=== PATIENT | male | born 1935 | race Caucasian/White ===

== ENCOUNTER 2017-02-01 19:20 | Emergency (ER) | payer OTHER ==
[~2017-02-01] VITALS: Ht 177.8 cm; Wt 110.1 kg
[~2017-02-01 19:20] MED LIST: ADVIN25/60 INH; ASPCH81X PO; ATOR-22 PO; BROM0.07 OPL; CALC500C3 PO; CLOB-65 TOP; GLIP10TA9 PO; OXGN; PRED1SUS OPL; SITA100T3 PO; TIOTCAP INH
[2017-02-01 19:21] VITALS: Ht 177.8 cm; Wt 110.1 kg
[2017-02-01] MEDS ORDERED: HYDR25TA4 PO (19:26)
[2017-02-01] MEDS ORDERED: DiphenhydrAMINE HCL 50 MG/ML VIAL IV STA (19:51)
[2017-02-01] MEDS ORDERED: FAMOTIDINE IV INJ 20 MG in DEXTROSE 5% 100ML 100 ML IV STA (19:51)
[2017-02-01] MEDS ORDERED: TIOT1SPR INH (19:52)
[2017-02-01] MEDS ORDERED: LPT40 PO (20:07)
[2017-02-01] MEDS ORDERED: FAMOTIDINE IV INJ 20 MG in SYRINGE 3 ML IV ONE (20:15)
[2017-02-01] MEDS ORDERED: INSULIN ASPART 100 UNITS/ML 3 ML PEN SC ONE (20:30)
[2017-02-01] MEDS ORDERED: NovoLOG PER UNIT CHARGE SC ONE (20:45)
[2017-02-01 21:40] VITALS: BP 141/73; PULSE 89; O2SAT 94
--- NOTE | 2017-02-01 21:50 | EMERGENCY ROOM VISIT NOTE ---
History First contact with patient: 19:28 Chief Complaint: ALLERGIC REACTION Stated Complaint: HIVES History of Present Illness The patient is a 81 year old male who presents to the Emergency Room with complaints of new onset of itchy rash on his arms, abdomen, and legs this afternoon, within an hour of leaving [facility] s/p naso-pharyngeal laryngoscopy. PMH significant for esophageal cancer and diabetes mellitus. Patient has had these scopes at least 4 times and has never had any reaction to the medications in the past. He reports that while driving home, he had to stop at a truck stop to buy some benadryl. He took 2 25 mg benadryl at approximately 1630 today. He had reported some difficulty breathing at that time which subsided after the benadryl. He currently denies and shortness of breath, tongue or lip swelling, dizziness. His sole complaint is itchy hives on arms, legs, and abdomen. He denies any food intake post-procedure. Review of Systems Constitutional: No fever, No chills, No sweats, No weight loss, No weakness , No fatigue, No problem reported Eyes: No worsening of vision, No eye pain, No redness, No discharge, No diplopia, No problem reported ENT: No hearing loss, No unusual epistaxis, No nasal symptoms, No sore throat, No tinnitus, No dental problems, No trouble swallowing, No problem reported Respiratory: No cough, No sputum, No wheezing, No shortness of breath, No dyspnea on exertion, No dyspnea at rest, No hemoptysis, No problem reported Cardiovascular: No chest pain, No orthopnea, No PND, No edema, No claudication, No palpitations, No problem reported Abdomen: No pain, No nausea, No vomiting, No diarrhea, No constipation, No GI bleeding, No problem reported Neurologic: No memory loss, No paralysis, No weakness, No numbness/tingling , No vertigo, No balance problems, No problem reported Hematologic / Lymphatic: No swollen lymph nodes Integumentary: + rash, + itch, + new/changing skin lesions Past Medical/Surgical History Medical Problems: (1) CKD (chronic kidney disease) stage 3, GFR 30-59 ml/min (2) COPD (chronic obstructive pulmonary disease) (3) DM type 2 (diabetes mellitus, type 2) (4) Dyslipidemia (5) H/O laryngeal cancer (6) H/O prostate cancer (7) HTN (hypertension) (8) Pleural effusion Social History Smoking Status: Never Smoker Drug Use: none Marital Status: Occupation Status: retired Current/Historical Medications Scheduled Atorvastatin (Atorvastatin Calcium), 40 MG PO DAILY Fluticasone Prop/Salmeterol (Advair Diskus 250/50 60 Dose), 1 PUFF INH BID Glipizide (Glucotrol), 10 MG PO BID Hydrochlorothiazide (Hctz), 1 TAB PO QAM Sitagliptin Phosphate (Januvia), 100 MG PO QAM Tiotropium [place] (Spiriva Respimat), 1 PUFF INH DAILY Physical Exam Vital Signs Date Time Temp Pulse Resp B/P (MAP) Pulse Ox O2 Delivery O2 Flow Rate FiO2 02/01/17 21:40 89 18 141/73 94 Room Air 02/01/17 19:48 Room Air 93 02/01/17 19:21 86 18 152/65 91 Room Air Physical Exam General Appearance: WD/WN, no apparent distress Head: normocephalic, atraumatic Eyes: normal inspection, PERRL, EOMI, sclerae normal ENT: normal ENT inspection, hearing grossly normal, TMs normal, pharynx normal Neck: supple, no adenopathy, trachea midline Respiratory/Chest: chest non-tender, lungs clear, normal breath sounds, no respiratory distress, no accessory muscle use Cardiovascular: regular rate, rhythm, no edema, no gallop, no JVD, no murmur , normal peripheral pulses Abdomen / GI: normal bowel sounds, non tender, soft Back: normal inspection Extremities: + pertinent finding (diffuse confluent hives on anterior aspects of arms and abdomen) Neurologic/Psych: overlay plastician II-XII nml as tested, no motor/sensory deficits, alert , normal mood/affect, oriented x 3 Medical Decision & Procedures Laboratory Results Test 02/01/17 21:37 Bedside Glucose 229 mg/dl (70-99) Medications Administered Medications (Trade) Dose Ordered Sig/Lita Route Start Time Stop Time Status Last Admin Dose Admin Diphenhydramine HCl (Benadryl Inj) 25 mg NOW STAT IV 02/01/17 19:51 02/01/17 19:58 DC 02/01/17 20:30 25 MG Famotidine 20 mg/ Syringe 5 ml @ 2.5 mls/min NOW ONCE IV 02/01/17 20:15 02/01/17 20:16 DC 02/01/17 20:30 2.5 MLS/MIN Insulin Aspart (novoLOG PER UNIT) 6 units NOW ONCE SC 02/01/17 20:45 02/01/17 20:46 DC 02/01/17 20:44 6 UNITS ED Course 1929: full h&p obtained 1944: Discussed case with Dr. Kulkarni 1999: Ordered POC glucose, 25 mg benadryl, 20 mg famotidine 2029: Glucose found to be 287; ordered 6 units novolog insulin; decision made to not give solumedrol. 2144: Reassessed patient; Rash is completely resolved; patient feels well, understands return instructions and is eager to depart. Glucose repeat of 220. Patient to return home and take diabetes medications. Medical Decision Prior records/ancillary studies reviewed. Triage Nursing notes reviewed. Additional history obtained from patient and family. The patient's history was concerning for possible allergic reaction. Differential diagnosis: Etiologies such as allergic reaction, anaphylaxis, urticaria, Navarro-Miguel syndrome, toxic epidermal necrolysis, erythema multiforme, cellulitis, as well as others were entertained. Physical examination: As above. ER treatment provided: Continuous cardiac monitoring Benadryl 25 mg IV Famotidine 20 mg IV 6 U novolog insulin On reassessment the patient felt better. It appears the patient had an allergic reaction. The above treatment did well to reverse the symptoms. After prolonged monitoring and frequent reassessments the patient did very well and symptoms resolved. The patient was counseled on the spectrum of this disease process and told to avoid potential triggers. I gave my usual and customary discussion regarding this issue. By the evaluation outlined above emergent etiologies such as recurring anaphylaxis, anaphylatic shock, airway compromise, Navarro-Miguel syndrome, toxic epidermal necrolysis, erythema multiforme, infectious etiologies, as well as others were deemed relatively unlikely. The patient and family were informed about the findings as listed above. All questions were answered and they were pleased with the treatment. Return instructions were outlined and the patient was discharged in stable condition. Referral: The patient was referred back to his primary care physician for follow-up in 2- 3 days for a recheck of the current condition. Impression Primary Impression: Allergic reaction Departure Information Dispostion Home / Self-Care Condition GOOD Referrals Dario Etienne D.O. (PCP) Patient Instructions Allergy Meds, [facility] Additional Instructions ALLERGIC REACTION INSTRUCTIONS: DO NOT drive, drink alcohol, operate machinery, or perform dangerous activities today. You were given medications in the ER that can affect your ability to safely function or operate a vehicle. Diphenhydramine(Benadryl) 25mg: use 25 to 50 mg as needed every six hours for swelling, itching, or hives. This medication is sedating and will cause drowsiness. Avoid alcohol, operating machinery or dangerous equipment, working on ladders or roofs, DRIVING , or situations where being under the influence may be dangerous. Zantac 75: Take two pills twice a day along with Benadryl as needed for swelling , itching, or hives. Most people know this for its affect on the stomach, but it also acts similar to, but less potent than Benadryl for allergic reactions. Both the Benadryl and the Zantac are available [id number]. Read all the package inserts or medication information paperwork provided. If you have any questions or concerns call your primary provider, pharmacist or the ER for assistance. Continue current medications. Return to the emergency department for worsening of your rash, swelling of your face, lips, tongue, or throat, difficulty breathing, vomiting, or as needed. Follow-up with your primary care physician in 2-3 days for a recheck of your current condition. Resident Tracking Resident Involvement: Resident Care Provided Care Provided: Adult ED Problem Qualifiers Primary Impression: Allergic reaction Encounter type: initial encounter Qualified Codes: T78.40XA - Allergy, unspecified, initial encounter
--- NOTE | 2017-02-03 01:14 | EMERGENCY ROOM VISIT NOTE ---
ED Visit Note First contact with patient: 19:26 Resident Physician Supervision Note: I interviewed and examined the patient. Discussed with Dr. Mcwilliams and agree with findings and plan as documented in the note. Any exceptions or clarifications are listed here: The patient was evaluated and was having a mild allergic reaction. He had taken 50 mg of Benadryl prior to arrival. He is found to be hyperglycemic, admitting he had mashed potatoes and bread prior to arrival. He was given 6 units of regular insulin subcutaneously. IV access was obtained and the patient was given IV Benadryl 25 mg, IV Pepcid 20 mg. Steroids were avoided due to the patient's hyperglycemia. The patient was observed in the emergency department and was feeling much improved. He will continue Benadryl as needed for allergic symptoms. Patient will monitor his glucose carefully. He'll follow-up with his PCP this week and notify ENT doctor of the reaction. Patient will return to the ER for worsening of symptoms or any medical concerns. Diagnosis: Allergic reaction Documented By: Wendy Kulkarni
== END 2017-02-01 21:57 | disposition home or self-care (01) ==
LOC: C.EDB 19:21
DX: T78.40XA Allergy, unspecified, initial encounter (principal); X58.XXXA Exposure to other specified factors, initial encounter; E11.22 Type 2 diabetes mellitus with diabetic chronic kidney disease; N18.3 Chronic kidney disease, stage 3 (moderate); J44.9 Chronic obstructive pulmonary disease, unspecified; E78.5 Hyperlipidemia, unspecified; I12.9 Hypertensive chronic kidney disease with stage 1 through stage 4 chronic kidney disease, or unspecified chronic kidney disease

== ENCOUNTER 2018-05-01 05:49 | Inpatient (IN) ==
[2018-05-01 06:21] LABS: Basophils # (auto) 0.01 K/uL (0-0.2); Basophils % (auto) 0.2 %; Eosinophils # (auto) 0.11 K/uL (0-0.5); Eosinophils % (auto) 1.7 %; Hematocrit (blood only) 46.5 % (42-52); Hemoglobin 15.1 g/dL (14.0-18.0); Immature Granulocytes # (auto) 0.01 K/uL (0.00-0.02); Immature Granulocytes % (auto) 0.2 %; Lymphocytes # (auto) 0.89 K/uL (1.2-3.4); Lymphocytes % (auto) 13.4 %; Mean Corpuscular Hgb Conc 32.5 g/dL (32-36); Mean Corpuscular Volume 94.3 fL (80-100); Mean Platelet Volume 10.1 fL (7.4-10.4); Monocytes # (auto) 0.61 K/uL (0.11-0.59); Monocytes % (auto) 9.2 %; Neutrophils # (auto) 4.99 K/uL (1.4-6.5); Neutrophils % (auto) 75.3 %; Platelet Count 147 K/uL (130-400); RDW Coefficient of Variation 14.7 % (11.5-14.5); Red Blood Count 4.93 M/uL (4.7-6.1); White Blood Count 6.62 K/uL (4.8-10.8)
--- NOTE | 2018-05-01 06:26 | XRay Report ---
XR chest 1V portable HISTORY: 82 years-old Male SOB acute shortness of breath COMPARISON: Chest radiograph 08/07/2015 TECHNIQUE: Portable AP view of the chest FINDINGS: Cardiac silhouette is enlarged, unchanged. Mild pulmonary vascular congestion. Moderate left pleural effusion with bibasilar opacities. No pneumothorax. Trace right pleural effusion. Degenerative change s of the shoulders and spine. IMPRESSION: 1. Cardiomegaly with pulmonary vascular congestion. 2. Moderate left pleural effusion with bibasilar opacities suggesting atelectasis. Pneumonitis not ex cluded. 3. Trace right pleural effusion. The above report was generated using voice recognition software. It may contain grammatical, syntax o r spelling errors. Electronically signed by: Edwin Vizcarra M.D. 05/01/2018 6:25 AM
[2018-05-01] MEDS ORDERED: ALBUT/IPRATROP 3MG/0.5MG NEB 3 ML VIAL NEB STA ×2 (06:30→07:20)
[2018-05-01] MEDS ORDERED: FUROSEMIDE 40 MG/4 ML VIAL IV STA ×2 (06:35→08:39)
[2018-05-01 06:36] LABS: BUN Creatinine Ratio 21.9 (10-20); Calcium 8.9 mg/dl (8.5-10.1); Creatinine Clr Calc Pharmacy 56.8 ml/min; Est GFR (African American) 60.7; Est GFR (Non-African American) 52.4; Potassium 3.8 mmol/L (3.5-5.1)
[2018-05-01 06:40] LABS: Troponin I 0.018 ng/ml (0-0.045)
[2018-05-01] MEDS ORDERED: methylPREDNISolone 125 MG/2 ML VIAL IV STA (06:47)
[2018-05-01 06:55] LABS: Albumin Level 3.4 gm/dl (3.4-5.0); Bilirubin Direct 0.3 mg/dl (0-0.2); Bilirubin,Total 1.3 mg/dl (0.2-1); Total Protein 6.9 gm/dl (6.4-8.2)
--- NOTE | 2018-05-01 07:46 | Emergency Department Note ---
Entered by Davis Rivera acting as a scribe for Mehnaz Valentino DO History of Present Illness General Chief complaint: Respiratory Problems Stated complaint: HAVING TROUBLE BREATHING Time Seen by Provider: 05/01/18 06:03 Source: patient Mode of arrival: ambulatory Limitations: no limitations History of Present Illness Onset (ago): unknown (Recent) Location: chest Pain Consistency: + other (Worsening) Relieved By: + none Associated symptoms: + denies other symptoms (Calf cramping) and + cough; no chest pain and no fever/chills The patient is an 82 year old male who presents to the ED due to complaints of worsening SOB that began recently. Patient has a history of COPD and uses 2L oxygen chronically at home. He states he is unable to take the oxygen tank with him though when he leaves his house. Patient states every year he goes to [place] with his for the winter. He states this year he went to [place] in January but him and his had to return earlier than usual in March because of the patients worsening SOB. He states he did not bring his inhalers with him to [place]. Patient states when he returned from [place] he saw Dr. Fulton in March who told him to start using his inhalers and 2L oxygen again until he got back to his baseline. Patient states he has not returned to his baseline making him concerned so he came into the ER. Patient adds that he has also had a productive cough but states this is not abnormal for him. He adds that his neighbor is a nurse and told him that he has lower extremity edema and diminished breath soun ds. Patient states he also has a history of diabetes. Patient denies any preceding URI symptoms, fevers, chest pain, sick contacts, recent immobilization, and calf cramping. Patient also denies using a nebulizer for his symptoms. Home Medications Home Medications Medication Instructions Recorded Confirmed Type atorvastatin 40 mg PO QAM 05/01/18 05/01/18 History fluticasone-salmeterol [Advair 1 inh INHALATION BID 05/01/18 05/01/18 History Diskus] glipizide 10 mg PO BID 05/01/18 05/01/18 History hydrochlorothiazide 25 mg PO QAM 05/01/18 05/01/18 History multivitamin 1 tab PO QAM 05/01/18 05/01/18 History sitagliptin [Januvia] 100 mg PO QAM 05/01/18 05/01/18 History tiotropium bromide [Spiriva with 1 cap INHALATION QAM 05/01/18 05/01/18 History HandiHaler] Allergies Allergy/AdvReac Type Severity Reaction Status Date / Time No Known Allergies Allergy . Verified 05/01/18 06:27 Past Med/Surg History Medical History COPD (chronic obstructive pulmonary disease) Diabetes Surgical History History of thoracentesis Social History Communication Ability: Effective Beliefs That Will Affect Care: None marital status: Current Living Situation: Spouse Other Information That Helps Us Care for You: No Feels Safe at Home: Yes Safety Concerns: Feels Safe At This Time Smoking Status: Former smoker Hx Alcohol Use: No Hx Substance Use: No Review of Systems See HPI for pertinent positives & negatives. and A total of 10 systems reviewed and were otherwise negative Physical Exam Vital Signs Vital Signs - 24 hr 05/02/18 20:11 05/02/18 23:00 05/02/18 23:36 Temperature 36.9 C 36.6 C Temperature Source Oral Oral Pulse Rate 65 Pulse Rate [Finger] Pulse Rate [Right] 78 61 Pulse Rhythm [Finger] Pulse Rhythm [Right] Regular Pulse Strength [Finger] Pulse Strength [Right] Normal Respiratory Rate 19 17 Respiratory Effort / Characteristics Non-Labored Respiratory Depth Normal Normal Respiratory Pattern Blood Pressure [Left Arm] Blood Pressure [Right Arm] 122/65 120/53 L Blood Pressure Mean [Left Arm] Blood Pressure Mean [Right Arm] 84 75 Blood Pressure Position [Left Arm] Blood Pressure Position [Right Arm] Lying Lying Pulse Oximetry 92 95 Pulse Oximetry [Start of Treatment] Oxygen Delivery Method Nasal Cannula Nasal Cannula Oxygen Flow Rate 2 3 Oxygen Flow Rate [Start of Treatment] 05/03/18 04:12 05/03/18 07:12 05/03/18 08:00 Temperature 36.6 C 37.1 C Temperature Source Oral Oral Pulse Rate Pulse Rate [Finger] 66 84 Pulse Rate [Right] Pulse Rhythm [Finger] Pulse Rhythm [Right] Pulse Strength [Finger] Pulse Strength [Right] Respiratory Rate 22 21 Respiratory Effort / Characteristics Non-Labored Spontaneous Respiratory Depth Normal Respiratory Pattern Regular Blood Pressure [Left Arm] 125/62 100/57 L Blood Pressure [Right Arm] Blood Pressure Mean [Left Arm] 83 71 Blood Pressure Mean [Right Arm] Blood Pressure Position [Left Arm] Sitting Sitting Blood Pressure Position [Right Arm] Pulse Oximetry 91 91 Pulse Oximetry [Start of Treatment] Oxygen Delivery Method Nasal Cannula Nasal Cannula Nasal Cannula Oxygen Flow Rate 3 3 3 Oxygen Flow Rate [Start of Treatment] 05/03/18 09:34 05/03/18 10:55 05/03/18 15:02 Temperature 36.6 C Temperature Source Oral Pulse Rate 87 Pulse Rate [Finger] 62 Pulse Rate [Right] Pulse Rhythm [Finger] Pulse Rhythm [Right] Pulse Strength [Finger] Pulse Strength [Right] Respiratory Rate 19 Respiratory Effort / Characteristics Respiratory Depth Respiratory Pattern Blood Pressure [Left Arm] 111/67 Blood Pressure [Right Arm] Blood Pressure Mean [Left Arm] 81 Blood Pressure Mean [Right Arm] Blood Pressure Position [Left Arm] Sitting Blood Pressure Position [Right Arm] Pulse Oximetry 95 Pulse Oximetry [Start of Treatment] 90 Oxygen Delivery Method Nasal Cannula Oxygen Flow Rate 3 Oxygen Flow Rate [Start of Treatment] 3 05/03/18 15:22 Temperature 36.7 C Temperature Source Oral Pulse Rate Pulse Rate [Finger] 72 Pulse Rate [Right] Pulse Rhythm [Finger] Regular Pulse Rhythm [Right] Pulse Strength [Finger] Normal Pulse Strength [Right] Respiratory Rate 18 Respiratory Effort / Characteristics Non-Labored Respiratory Depth Normal Respiratory Pattern Blood Pressure [Left Arm] Blood Pressure [Right Arm] 116/66 Blood Pressure Mean [Left Arm] Blood Pressure Mean [Right Arm] 82 Blood Pressure Position [Left Arm] Blood Pressure Position [Right Arm] Sitting Pulse Oximetry 94 Pulse Oximetry [Start of Treatment] Oxygen Delivery Method Nasal Cannula Oxygen Flow Rate 3 Oxygen Flow Rate [Start of Treatment] GENERAL: alert, well appearing, well nourished, no distress, non-toxic EYE EXAM: normal conjunctiva, PERRL and EOM's grossly intact OROPHARYNX: no exudate, no erythema, lips, buccal mucosa, and tongue normal and mucous membranes are moist NECK: supple, no nuchal rigidity, no adenopathy, non-tender LUNGS: Diminished breath sounds worse on left, scattered expiratory wheezes otherwise clear to auscultation. Normal chest wall mechanics HEART: no murmurs, S1 normal and S2 normal ABDOMEN: abdomen soft, non-tender, normo-active bowel sounds, no masses, no rebound or guarding. BACK: Back is symmetrical on inspection and there is no deformity, no midline tenderness, no CVA tenderness. SKIN: no rashes and no bruising UPPER EXTREMITIES: upper extremities are grossly normal. FROM, nml pulses b/l. LOWER EXTREMITIES: 2-3+ bilateral pitting edema. FROM, nml pulses b/l. NEURO EXAM: Normal sensorium, cranial nerves II-XII grossly intact, normal speech, no gross weakness of arms, no gross weakness of legs. Course 0600: Past medical records reviewed. The patient was evaluated in room B9, and a complete history and physical examination were performed. 0738: Upon reevaluation, the patient will be further evaluated. I updated the patient on their findings and treatment plan. Patient is agreeable to the treatment plan. Patient will be assessed for further evaluation. Consultations Consultation #1: I reviewed the patient's case with Dr. Menezes. He will evaluate the patient for further management. Administered Medications Atorvastatin Calcium (Lipitor) 40 mg PO HS MAYCOL Stop: 05/31/18 20:59 Last Admin: 05/02/18 21:43 Dose: 40 mg Documented by: [id number] Admin: 05/01/18 19:54 Dose: 40 mg Documented by: [id number] Glipizide (Glucotrol) 10 mg PO BIDM MAYCOL Stop: 05/31/18 11:29 Last Admin: 05/03/18 17:05 Dose: 10 mg Documented by: [id number] Admin: 05/03/18 09:10 Dose: 10 mg Documented by: [id number] Admin: 05/02/18 17:16 Dose: 10 mg Documented by: [id number] Admin: 05/02/18 08:11 Dose: 10 mg Documented by: [id number] Admin: 05/01/18 17:19 Dose: 10 mg Documented by: [id number] Admin: 05/01/18 11:53 Dose: 10 mg Documented by: [id number] Heparin Sodium (Porcine) (Heparin Sodium (Porcine)) 5,000 units SQ Q12 MAYCOL Stop: 05/31/18 08:59 Last Admin: 05/03/18 09:07 Dose: 5,000 units Documented by: [id number] Cosigned by: [id number] Admin: 05/02/18 21:39 Dose: 5,000 units Documented by: [id number] Cosigned by: [id number] Admin: 05/02/18 08:13 Dose: 5,000 units Documented by: [id number] Cosigned by: [id number] Admin: 05/01/18 20:46 Dose: 5,000 units Documented by: [id number] Cosigned by: [id number] Admin: 05/01/18 11:51 Dose: 5,000 units Documented by: [id number] Cosigned by: [id number] Insulin Aspart (Novolog Flexpen) 0 units SC ACHS MAYCOL Stop: 05/31/18 11:29 Last Admin: 05/03/18 17:04 Dose: 3 units Documented by: [id number] Cosigned by: [id number] Admin: 05/03/18 12:58 Dose: 4 units Documented by: [id number] Cosigned by: [id number] Admin: 05/03/18 09:04 Dose: 3 units Documented by: [id number] Cosigned by: [id number] Admin: 05/02/18 21:38 Dose: 3 units Documented by: [id number] Cosigned by: [id number] Admin: 05/02/18 17:17 Dose: 4 units Documented by: [id number] Cosigned by: [id number] Admin: 05/02/18 12:13 Dose: 8 units Documented by: [id number] Cosigned by: [id number] Admin: 05/02/18 08:14 Dose: 6 units Documented by: [id number] Cosigned by: [id number] Admin: 05/01/18 20:46 Dose: 3 units Documented by: [id number] Cosigned by: [id number] Admin: 05/01/18 17:18 Dose: 11 units Documented by: [id number] Cosigned by: [id number] Admin: 05/01/18 11:57 Dose: 238 units Documented by: [id number] Cosigned by: [id number] Metoprolol Tartrate (Lopressor) 12.5 mg PO BID MAYCOL Stop: 05/31/18 10:59 Last Admin: 05/03/18 09:08 Dose: 12.5 mg Documented by: [id number] Admin: 05/02/18 21:41 Dose: 12.5 mg Documented by: [id number] Admin: 05/02/18 08:10 Dose: 12.5 mg Documented by: [id number] Admin: 05/01/18 19:54 Dose: 12.5 mg Documented by: [id number] Admin: 05/01/18 11:50 Dose: 12.5 mg Documented by: [id number] Multivitamins (Multivitamin Tab) 1 tab PO QAM MAYCOL Stop: 05/31/18 10:01 Last Admin: 05/03/18 09:09 Dose: 1 tab Documented by: [id number] Admin: 05/02/18 08:09 Dose: 1 tab Documented by: [id number] Admin: 05/01/18 11:55 Dose: 1 tab Documented by: [id number] Fluticasone/Salmeterol (Advair Diskus 250/50) 1 puffs INH BID MAYCOL Stop: 05/31/18 10:01 Last Admin: 05/03/18 09:05 Dose: 1 puffs Documented by: [id number] Admin: 05/02/18 21:42 Dose: 1 puffs Documented by: [id number] Admin: 05/02/18 08:11 Dose: 1 puffs Documented by: [id number] Admin: 05/01/18 19:53 Dose: 1 puffs Documented by: [id number] Admin: 05/01/18 11:54 Dose: 1 puffs Documented by: [id number] Tiotropium [place] (Spiriva) 1 puffs INH QAM MAYCOL Stop: 05/31/18 10:01 Last Admin: 05/03/18 09:09 Dose: 1 puffs Documented by: [id number] Admin: 05/02/18 08:13 Dose: 1 puffs Documented by: [id number] Admin: 05/01/18 11:55 Dose: 1 puffs Documented by: [id number] Discontinued Medications Albuterol (Duoneb) 3 ml NEB NOW STA Stop: 05/01/18 06:31 Last Admin: 05/01/18 06:33 Dose: 3 ml Documented by: [id number] Albuterol (Duoneb) 3 ml NEB NOW STA Stop: 05/01/18 07:21 Last Admin: 05/01/18 07:35 Dose: 3 ml Documented by: [id number] Furosemide (Lasix) 40 mg IV NOW STA Stop: 05/01/18 06:36 Last Admin: 05/01/18 06:38 Dose: 40 mg Documented by: [id number] Furosemide (Lasix) 40 mg IV BID STA Stop: 05/01/18 08:40 Last Admin: 05/01/18 10:15 Dose: Not Given Documented by: [id number] Methylprednisolone 20 mg/ (Syringe) 0.32 mls @ 1.5 mls/min IV Q12H MAYCOL Stop: 05/31/18 18:59 Last Admin: 05/02/18 08:10 Dose: 1.5 mls/min Documented by: [id number] Admin: 05/01/18 19:52 Dose: 1.5 mls/min Documented by: [id number] Furosemide 40 mg/ Syringe 4 mls @ 4 mls/min IV [id number] MAYCOL Stop: 05/31/18 16:59 Last Admin: 05/03/18 09:06 Dose: 4 mls/min Documented by: [id number] Admin: 05/02/18 17:15 Dose: 4 mls/min Documented by: [id number] Admin: 05/02/18 08:10 Dose: 4 mls/min Documented by: [id number] Admin: 05/01/18 17:19 Dose: 4 mls/min Documented by: [id number] Magnesium Sulfate/Dextrose (Magnesium Sulfate / D5w) 1 gm in 100 mls @ 100 mls/hr IV ONE ONE Stop: 05/01/18 15:39 Last Infusion: 05/01/18 16:38 Dose: 0 mls/hr Documented by: [id number] Admin: 05/01/18 15:27 Dose: 100 mls/hr Documented by: [id number] Methylprednisolone (Solumedrol) 60 mg IV NOW STA Stop: 05/01/18 06:48 Last Admin: 05/01/18 07:08 Dose: 60 mg Documented by: [id number] Perflutren Lipid Microsphere (Definity) 2 ml IV ONCE ONE Stop: 05/01/18 10:03 Last Admin: 05/01/18 09:50 Dose: 2 ml Documented by: [id number] Potassium Chloride (Klor-Con M20) 20 meq PO NOW STA Stop: 05/01/18 10:52 Last Admin: 05/01/18 11:53 Dose: 20 meq Documented by: [id number] Medical Decision Making Differential Diagnosis Differential diagnosis: Etiologies such as infections, reactive airway disease, COPD, pneumonia, pleural effusion, pulmonary edema, ARDS, pneumothorax, CHF, cardiac ischemia, cardiac tamponade, dysrhythmia, anemia, pulmonary embolism, musculoskeletal, gastrointestinal process, as well as others were entertained. Medical Records Attestation: I reviewed the patient's medical records. Home Medications Current Medication List: was personally reviewed by me Laboratory Data Attestation: I reviewed the patient's lab results. Result diagrams: 05/02/18 07:26 05/03/18 07:02 Lab Results 05/01/18 05/01/18 05/01/18 Range/Units 06:05 06:05 06:05 WBC 6.62 (4.8-10.8) K/uL RBC 4.93 (4.7-6.1) M/uL Hgb 15.1 (14.0-18.0) g/dL Hct 46.5 (42-52) % MCV 94.3 (80-100) fL MCH 30.6 (25-34) pg MCHC 32.5 (32-36) g/dL RDW Std Deviation 51.0 H (36.4-46.3) fL RDW Coeff of Raisa 14.7 H (11.5-14.5) % Plt Count 147 (130-400) K/uL MPV 10.1 (7.4-10.4) fL Immature Gran % (Auto) 0.2 % Neut % (Auto) 75.3 % Lymph % (Auto) 13.4 % [place] % (Auto) 9.2 % Eos % (Auto) 1.7 % Baso % (Auto) 0.2 % Immature Gran # (Auto) 0.01 (0.00-0.02) K/uL Neut # (Auto) 4.99 (1.4-6.5) K/uL Lymph # (Auto) 0.89 L (1.2-3.4) K/uL [place] # (Auto) 0.61 H (0.11-0.59) K/uL Eos # (Auto) 0.11 (0-0.5) K/uL Baso # (Auto) 0.01 (0-0.2) K/uL PT (9.0-12.0) Seconds INR (0.9-1.1) Sample Site POC pH (7.35-7.45) POC pCO2 (35-46) mmHg POC pO2 (80-95) mmHg POC HCO3 (19-24) lilia/L POC Total CO2 (24-31) mEq/l POC Base Excess (-9-1.8) lilia/L POC ABG O2 Sat (90-95) % Catalino Test Sodium 141 (136-145) mmol/L Potassium 3.8 (3.5-5.1) mmol/L Chloride 103 (98-107) mmol/L Carbon Dioxide 33 H (21-32) mmol/L Anion Gap 5.0 (3-11) BUN 28 H (7-18) mg/dl Creatinine 1.26 (0.6-1.4) mg/dl Est Cr Clr Drug Dosing 56.8 ml/min Est GFR ( Amer) 60.7 Est GFR (Non-Af Amer) 52.4 BUN/Creatinine Ratio 21.9 H (10-20) Glucose 109 H (70-99) mg/dl POC Glucose (70-99) Estimat Average Glucose mg/dl Hemoglobin A1c (4.5-5.6) % Calcium 8.9 (8.5-10.1) mg/dl Magnesium (1.8-2.4) mg/dl Total Bilirubin 1.3 H (0.2-1) mg/dl Direct Bilirubin 0.3 H (0-0.2) mg/dl AST 19 (15-37) U/L ALT 23 (12-78) U/L Alkaline Phosphatase 96 (45-117) U/L Lactate Dehydrogenase (87-241) U/L Troponin I 0.018 (0-0.045) ng/ml NT-Pro-B Natriuret Pep 679 (0-1800) pg/ml Total Protein 6.9 (6.4-8.2) gm/dl Albumin 3.4 (3.4-5.0) gm/dl Pleural Fluid Source Pleural Color Pleural Appearance Pleural WBC /uL Pleural RBC /uL Pleural Polynuclear % % Pleural Mononuclear % % Pleural Total Protein g/dl Pleural LDH U/L Pleural Glucose mg/dl Pleural Amylase U/L Influenza Type A Ag (Neg) Influenza Type B Ag (Neg) 05/01/18 05/01/18 05/01/18 Range/Units 06:05 06:10 09:42 WBC (4.8-10.8) K/uL RBC (4.7-6.1) M/uL Hgb (14.0-18.0) g/dL Hct (42-52) % MCV (80-100) fL MCH (25-34) pg MCHC (32-36) g/dL RDW Std Deviation (36.4-46.3) fL RDW Coeff of Raisa (11.5-14.5) % Plt Count (130-400) K/uL MPV (7.4-10.4) fL Immature Gran % (Auto) % Neut % (Auto) % Lymph % (Auto) % [place] % (Auto) % Eos % (Auto) % Baso % (Auto) % Immature Gran # (Auto) (0.00-0.02) K/uL Neut # (Auto) (1.4-6.5) K/uL Lymph # (Auto) (1.2-3.4) K/uL [place] # (Auto) (0.11-0.59) K/uL Eos # (Auto) (0-0.5) K/uL Baso # (Auto) (0-0.2) K/uL PT 11.4 (9.0-12.0) Seconds INR 1.1 (0.9-1.1) Sample Site POC pH (7.35-7.45) POC pCO2 (35-46) mmHg POC pO2 (80-95) mmHg POC HCO3 (19-24) lilia/L POC Total CO2 (24-31) mEq/l POC Base Excess (-9-1.8) lilia/L POC ABG O2 Sat (90-95) % Catalino Test Sodium (136-145) mmol/L Potassium (3.5-5.1) mmol/L Chloride (98-107) mmol/L Carbon Dioxide (21-32) mmol/L Anion Gap (3-11) BUN (7-18) mg/dl Creatinine (0.6-1.4) mg/dl Est Cr Clr Drug Dosing ml/min Est GFR ( Amer) Est GFR (Non-Af Amer) BUN/Creatinine Ratio (10-20) Glucose (70-99) mg/dl POC Glucose 149 H (70-99) Estimat Average Glucose mg/dl Hemoglobin A1c (4.5-5.6) % Calcium (8.5-10.1) mg/dl Magnesium (1.8-2.4) mg/dl Total Bilirubin (0.2-1) mg/dl Direct Bilirubin (0-0.2) mg/dl AST (15-37) U/L ALT (12-78) U/L Alkaline Phosphatase (45-117) U/L Lactate Dehydrogenase (87-241) U/L Troponin I (0-0.045) ng/ml NT-Pro-B Natriuret Pep (0-1800) pg/ml Total Protein (6.4-8.2) gm/dl Albumin (3.4-5.0) gm/dl Pleural Fluid Source Pleural Color Pleural Appearance Pleural WBC /uL Pleural RBC /uL Pleural Polynuclear % % Pleural Mononuclear % % Pleural Total Protein g/dl Pleural LDH U/L Pleural Glucose mg/dl Pleural Amylase U/L Influenza Type A Ag Neg for Influ A (Neg) Influenza Type B Ag Neg for Influ B (Neg) 05/01/18 05/01/18 05/01/18 Range/Units 11:11 11:30 17:00 WBC (4.8-10.8) K/uL RBC (4.7-6.1) M/uL Hgb (14.0-18.0) g/dL Hct (42-52) % MCV (80-100) fL MCH (25-34) pg MCHC (32-36) g/dL RDW Std Deviation (36.4-46.3) fL RDW Coeff of Raisa (11.5-14.5) % Plt Count (130-400) K/uL MPV (7.4-10.4) fL Immature Gran % (Auto) % Neut % (Auto) % Lymph % (Auto) % [place] % (Auto) % Eos % (Auto) % Baso % (Auto) % Immature Gran # (Auto) (0.00-0.02) K/uL Neut # (Auto) (1.4-6.5) K/uL Lymph # (Auto) (1.2-3.4) K/uL [place] # (Auto) (0.11-0.59) K/uL Eos # (Auto) (0-0.5) K/uL Baso # (Auto) (0-0.2) K/uL PT (9.0-12.0) Seconds INR (0.9-1.1) Sample Site POC pH (7.35-7.45) POC pCO2 (35-46) mmHg POC pO2 (80-95) mmHg POC HCO3 (19-24) lilia/L POC Total CO2 (24-31) mEq/l POC Base Excess (-9-1.8) lilia/L POC ABG O2 Sat (90-95) % Catalino Test Sodium 139 (136-145) mmol/L Potassium 4.3 (3.5-5.1) mmol/L Chloride 100 (98-107) mmol/L Carbon Dioxide 33 H (21-32) mmol/L Anion Gap 6.0 (3-11) BUN 29 H (7-18) mg/dl Creatinine 1.30 (0.6-1.4) mg/dl Est Cr Clr Drug Dosing 55.0 ml/min Est GFR ( Amer) 58.5 Est GFR (Non-Af Amer) 50.5 BUN/Creatinine Ratio 22.0 H (10-20) Glucose 236 H (70-99) mg/dl POC Glucose 238 H (70-99) Estimat Average Glucose mg/dl Hemoglobin A1c (4.5-5.6) % Calcium 8.9 (8.5-10.1) mg/dl Magnesium 1.8 (1.8-2.4) mg/dl Total Bilirubin (0.2-1) mg/dl Direct Bilirubin (0-0.2) mg/dl AST (15-37) U/L ALT (12-78) U/L Alkaline Phosphatase (45-117) U/L Lactate Dehydrogenase (87-241) U/L Troponin I (0-0.045) ng/ml NT-Pro-B Natriuret Pep (0-1800) pg/ml Total Protein (6.4-8.2) gm/dl Albumin (3.4-5.0) gm/dl Pleural Fluid Source LEFT LUNG Pleural Color YELLOW Pleural Appearance CLEAR Pleural WBC 651 /uL Pleural RBC < 3000 /uL Pleural Polynuclear % 21.7 % Pleural Mononuclear % 78.3 % Pleural Total Protein 4.4 g/dl Pleural LDH 138 U/L Pleural Glucose 261 mg/dl Pleural Amylase 30 U/L Influenza Type A Ag (Neg) Influenza Type B Ag (Neg) 05/01/18 05/01/18 05/01/18 Range/Units 17:01 17:08 20:44 WBC (4.8-10.8) K/uL RBC (4.7-6.1) M/uL Hgb (14.0-18.0) g/dL Hct (42-52) % MCV (80-100) fL MCH (25-34) pg MCHC (32-36) g/dL RDW Std Deviation (36.4-46.3) fL RDW Coeff of Raisa (11.5-14.5) % Plt Count (130-400) K/uL MPV (7.4-10.4) fL Immature Gran % (Auto) % Neut % (Auto) % Lymph % (Auto) % [place] % (Auto) % Eos % (Auto) % Baso % (Auto) % Immature Gran # (Auto) (0.00-0.02) K/uL Neut # (Auto) (1.4-6.5) K/uL Lymph # (Auto) (1.2-3.4) K/uL [place] # (Auto) (0.11-0.59) K/uL Eos # (Auto) (0-0.5) K/uL Baso # (Auto) (0-0.2) K/uL PT (9.0-12.0) Seconds INR (0.9-1.1) Sample Site Heel Stick POC pH 7.41 (7.35-7.45) POC pCO2 47 H (35-46) mmHg POC pO2 77 L (80-95) mmHg POC HCO3 30 H (19-24) lilia/L POC Total CO2 31 (24-31) mEq/l POC Base Excess 5.0 H (-9-1.8) lilia/L POC ABG O2 Sat 95.0 (90-95) % Catalino Test NA Sodium (136-145) mmol/L Potassium (3.5-5.1) mmol/L Chloride (98-107) mmol/L Carbon Dioxide (21-32) mmol/L Anion Gap (3-11) BUN (7-18) mg/dl Creatinine (0.6-1.4) mg/dl Est Cr Clr Drug Dosing ml/min Est GFR ( Amer) Est GFR (Non-Af Amer) BUN/Creatinine Ratio (10-20) Glucose (70-99) mg/dl POC Glucose 253 H 188 H (70-99) Estimat Average Glucose mg/dl Hemoglobin A1c (4.5-5.6) % Calcium (8.5-10.1) mg/dl Magnesium (1.8-2.4) mg/dl Total Bilirubin (0.2-1) mg/dl Direct Bilirubin (0-0.2) mg/dl AST (15-37) U/L ALT (12-78) U/L Alkaline Phosphatase (45-117) U/L Lactate Dehydrogenase (87-241) U/L Troponin I (0-0.045) ng/ml NT-Pro-B Natriuret Pep (0-1800) pg/ml Total Protein (6.4-8.2) gm/dl Albumin (3.4-5.0) gm/dl Pleural Fluid Source Pleural Color Pleural Appearance Pleural WBC /uL Pleural RBC /uL Pleural Polynuclear % % Pleural Mononuclear % % Pleural Total Protein g/dl Pleural LDH U/L Pleural Glucose mg/dl Pleural Amylase U/L Influenza Type A Ag (Neg) Influenza Type B Ag (Neg) 05/02/18 05/02/18 05/02/18 Range/Units 07:21 07:26 07:26 WBC 10.77 (4.8-10.8) K/uL RBC 5.04 (4.7-6.1) M/uL Hgb 15.2 (14.0-18.0) g/dL Hct 47.3 (42-52) % MCV 93.8 (80-100) fL MCH 30.2 (25-34) pg MCHC 32.1 (32-36) g/dL RDW Std Deviation 49.6 H (36.4-46.3) fL RDW Coeff of Raisa 14.5 (11.5-14.5) % Plt Count 169 (130-400) K/uL MPV 10.7 H (7.4-10.4) fL Immature Gran % (Auto) 0.2 % Neut % (Auto) 87.3 % Lymph % (Auto) 6.6 % [place] % (Auto) 5.8 % Eos % (Auto) 0.0 % Baso % (Auto) 0.1 % Immature Gran # (Auto) 0.02 (0.00-0.02) K/uL Neut # (Auto) 9.41 H (1.4-6.5) K/uL Lymph # (Auto) 0.71 L (1.2-3.4) K/uL [place] # (Auto) 0.62 H (0.11-0.59) K/uL Eos # (Auto) 0.00 (0-0.5) K/uL Baso # (Auto) 0.01 (0-0.2) K/uL PT (9.0-12.0) Seconds INR (0.9-1.1) Sample Site POC pH (7.35-7.45) POC pCO2 (35-46) mmHg POC pO2 (80-95) mmHg POC HCO3 (19-24) lilia/L POC Total CO2 (24-31) mEq/l POC Base Excess (-9-1.8) lilia/L POC ABG O2 Sat (90-95) % Catalino Test Sodium 138 (136-145) mmol/L Potassium 4.1 (3.5-5.1) mmol/L Chloride 98 (98-107) mmol/L Carbon Dioxide 34 H (21-32) mmol/L Anion Gap 6.0 (3-11) BUN 37 H (7-18) mg/dl Creatinine 1.37 (0.6-1.4) mg/dl Est Cr Clr Drug Dosing 50.4 ml/min Est GFR ( Amer) 54.9 Est GFR (Non-Af Amer) 47.4 BUN/Creatinine Ratio 27.2 H (10-20) Glucose 146 H (70-99) mg/dl POC Glucose 130 H (70-99) Estimat Average Glucose mg/dl Hemoglobin A1c (4.5-5.6) % Calcium 8.6 (8.5-10.1) mg/dl Magnesium 2.1 (1.8-2.4) mg/dl Total Bilirubin (0.2-1) mg/dl Direct Bilirubin (0-0.2) mg/dl AST (15-37) U/L ALT (12-78) U/L Alkaline Phosphatase (45-117) U/L Lactate Dehydrogenase (87-241) U/L Troponin I (0-0.045) ng/ml NT-Pro-B Natriuret Pep (0-1800) pg/ml Total Protein (6.4-8.2) gm/dl Albumin (3.4-5.0) gm/dl Pleural Fluid Source Pleural Color Pleural Appearance Pleural WBC /uL Pleural RBC /uL Pleural Polynuclear % % Pleural Mononuclear % % Pleural Total Protein g/dl Pleural LDH U/L Pleural Glucose mg/dl Pleural Amylase U/L Influenza Type A Ag (Neg) Influenza Type B Ag (Neg) 05/02/18 05/02/18 05/02/18 Range/Units 11:06 17:08 17:49 WBC (4.8-10.8) K/uL RBC (4.7-6.1) M/uL Hgb (14.0-18.0) g/dL Hct (42-52) % MCV (80-100) fL MCH (25-34) pg MCHC (32-36) g/dL RDW Std Deviation (36.4-46.3) fL RDW Coeff of Raias (11.5-14.5) % Plt Count (130-400) K/uL MPV (7.4-10.4) fL Immature Gran % (Auto) % Neut % (Auto) % Lymph % (Auto) % [place] % (Auto) % Eos % (Auto) % Baso % (Auto) % Immature Gran # (Auto) (0.00-0.02) K/uL Neut # (Auto) (1.4-6.5) K/uL Lymph # (Auto) (1.2-3.4) K/uL [place] # (Auto) (0.11-0.59) K/uL Eos # (Auto) (0-0.5) K/uL Baso # (Auto) (0-0.2) K/uL PT (9.0-12.0) Seconds INR (0.9-1.1) Sample Site POC pH (7.35-7.45) POC pCO2 (35-46) mmHg POC pO2 (80-95) mmHg POC HCO3 (19-24) lilia/L POC Total CO2 (24-31) mEq/l POC Base Excess (-9-1.8) lilia/L POC ABG O2 Sat (90-95) % Catalino Test Sodium (136-145) mmol/L Potassium (3.5-5.1) mmol/L Chloride (98-107) mmol/L Carbon Dioxide (21-32) mmol/L Anion Gap (3-11) BUN (7-18) mg/dl Creatinine (0.6-1.4) mg/dl Est Cr Clr Drug Dosing ml/min Est GFR ( Amer) Est GFR (Non-Af Amer) BUN/Creatinine Ratio (10-20) Glucose (70-99) mg/dl POC Glucose 212 H 115 H (70-99) Estimat Average Glucose mg/dl Hemoglobin A1c (4.5-5.6) % Calcium (8.5-10.1) mg/dl Magnesium (1.8-2.4) mg/dl Total Bilirubin (0.2-1) mg/dl Direct Bilirubin (0-0.2) mg/dl AST (15-37) U/L ALT (12-78) U/L Alkaline Phosphatase (45-117) U/L Lactate Dehydrogenase 198 (87-241) U/L Troponin I (0-0.045) ng/ml NT-Pro-B Natriuret Pep (0-1800) pg/ml Total Protein (6.4-8.2) gm/dl Albumin (3.4-5.0) gm/dl Pleural Fluid Source Pleural Color Pleural Appearance Pleural WBC /uL Pleural RBC /uL Pleural Polynuclear % % Pleural Mononuclear % % Pleural Total Protein g/dl Pleural LDH U/L Pleural Glucose mg/dl Pleural Amylase U/L Influenza Type A Ag (Neg) Influenza Type B Ag (Neg) 05/02/18 05/03/18 05/03/18 Range/Units 20:51 07:02 07:02 WBC (4.8-10.8) K/uL RBC (4.7-6.1) M/uL Hgb (14.0-18.0) g/dL Hct (42-52) % MCV (80-100) fL MCH (25-34) pg MCHC (32-36) g/dL RDW Std Deviation (36.4-46.3) fL RDW Coeff of Raisa (11.5-14.5) % Plt Count (130-400) K/uL MPV (7.4-10.4) fL Immature Gran % (Auto) % Neut % (Auto) % Lymph % (Auto) % Shoshone % (Auto) % Eos % (Auto) % Baso % (Auto) % Immature Gran # (Auto) (0.00-0.02) K/uL Neut # (Auto) (1.4-6.5) K/uL Lymph # (Auto) (1.2-3.4) K/uL Shoshone # (Auto) (0.11-0.59) K/uL Eos # (Auto) (0-0.5) K/uL Baso # (Auto) (0-0.2) K/uL PT (9.0-12.0) Seconds INR (0.9-1.1) Sample Site POC pH (7.35-7.45) POC pCO2 (35-46) mmHg POC pO2 (80-95) mmHg POC HCO3 (19-24) lilia/L POC Total CO2 (24-31) mEq/l POC Base Excess (-9-1.8) lilia/L POC ABG O2 Sat (90-95) % Catalino Test Sodium 137 (136-145) mmol/L Potassium 3.9 (3.5-5.1) mmol/L Chloride 96 L (98-107) mmol/L Carbon Dioxide 37 H (21-32) mmol/L Anion Gap 4.0 (3-11) BUN 47 H (7-18) mg/dl Creatinine 1.67 H D (0.6-1.4) mg/dl Est Cr Clr Drug Dosing 41.3 ml/min Est GFR ( Amer) 43.2 Est GFR (Non-Af Amer) 37.3 BUN/Creatinine Ratio 27.8 H (10-20) Glucose 82 (70-99) mg/dl POC Glucose 196 H (70-99) Estimat Average Glucose 160 mg/dl Hemoglobin A1c 7.2 H (4.5-5.6) % Calcium 8.6 (8.5-10.1) mg/dl Magnesium 2.1 (1.8-2.4) mg/dl Total Bilirubin (0.2-1) mg/dl Direct Bilirubin (0-0.2) mg/dl AST (15-37) U/L ALT (12-78) U/L Alkaline Phosphatase (45-117) U/L Lactate Dehydrogenase (87-241) U/L Troponin I (0-0.045) ng/ml NT-Pro-B Natriuret Pep (0-1800) pg/ml Total Protein (6.4-8.2) gm/dl Albumin (3.4-5.0) gm/dl Pleural Fluid Source Pleural Color Pleural Appearance Pleural WBC /uL Pleural RBC /uL Pleural Polynuclear % % Pleural Mononuclear % % Pleural Total Protein g/dl Pleural LDH U/L Pleural Glucose mg/dl Pleural Amylase U/L Influenza Type A Ag (Neg) Influenza Type B Ag (Neg) 05/03/18 05/03/18 05/03/18 Range/Units 07:36 11:22 16:21 WBC (4.8-10.8) K/uL RBC (4.7-6.1) M/uL Hgb (14.0-18.0) g/dL Hct (42-52) % MCV (80-100) fL MCH (25-34) pg MCHC (32-36) g/dL RDW Std Deviation (36.4-46.3) fL RDW Coeff of Raisa (11.5-14.5) % Plt Count (130-400) K/uL MPV (7.4-10.4) fL Immature Gran % (Auto) % Neut % (Auto) % Lymph % (Auto) % Shoshone % (Auto) % Eos % (Auto) % Baso % (Auto) % Immature Gran # (Auto) (0.00-0.02) K/uL Neut # (Auto) (1.4-6.5) K/uL Lymph # (Auto) (1.2-3.4) K/uL Shoshone # (Auto) (0.11-0.59) K/uL Eos # (Auto) (0-0.5) K/uL Baso # (Auto) (0-0.2) K/uL PT (9.0-12.0) Seconds INR (0.9-1.1) Sample Site POC pH (7.35-7.45) POC pCO2 (35-46) mmHg POC pO2 (80-95) mmHg POC HCO3 (19-24) lilia/L POC Total CO2 (24-31) mEq/l POC Base Excess (-9-1.8) lilia/L POC ABG O2 Sat (90-95) % Catalino Test Sodium (136-145) mmol/L Potassium (3.5-5.1) mmol/L Chloride (98-107) mmol/L Carbon Dioxide (21-32) mmol/L Anion Gap (3-11) BUN (7-18) mg/dl Creatinine (0.6-1.4) mg/dl Est Cr Clr Drug Dosing ml/min Est GFR ( Amer) Est GFR (Non-Af Amer) BUN/Creatinine Ratio (10-20) Glucose (70-99) mg/dl POC Glucose 75 121 H 84 (70-99) Estimat Average Glucose mg/dl Hemoglobin A1c (4.5-5.6) % Calcium (8.5-10.1) mg/dl Magnesium (1.8-2.4) mg/dl Total Bilirubin (0.2-1) mg/dl Direct Bilirubin (0-0.2) mg/dl AST (15-37) U/L ALT (12-78) U/L Alkaline Phosphatase (45-117) U/L Lactate Dehydrogenase (87-241) U/L Troponin I (0-0.045) ng/ml NT-Pro-B Natriuret Pep (0-1800) pg/ml Total Protein (6.4-8.2) gm/dl Albumin (3.4-5.0) gm/dl Pleural Fluid Source Pleural Color Pleural Appearance Pleural WBC /uL Pleural RBC /uL Pleural Polynuclear % % Pleural Mononuclear % % Pleural Total Protein g/dl Pleural LDH U/L Pleural Glucose mg/dl Pleural Amylase U/L Influenza Type A Ag (Neg) Influenza Type B Ag (Neg) Imaging Data My Impression: cxr single view interpreted by me: mild CM, moderate left pleural effusion, trace right pleural effusion, no other focal consolidation, no wide mediastinum Blood Pressure Blood Pressure Findings: Normal blood pressure MDM Narrative Pt here with worsening dyspnea and no improvement with home MDI. Pt with likely copd exacerbation and worsening left pleural effusion. Pt states he previously had a right pleural effusion that was drained by Dr. Fox. States no one ever told him why he had it. Given worsening LE edema, I am also suspicious of CHF exacerbation also. Pt given several duonebs and solumedrol for his COPD, and also given a dose of IV lasix. Pt without fever or leukocytosis, I do not suspect occult pneumonia. I do not suspect PE. No other symptoms to suggest ACS. Troponin negative. INfluenza negative. Pt and family made of all results and my concerns for persistent dyspnea without improvement and worsening LE edema. They were in agreement with plan. Case discussed with the hospitalist for additional evaluation and mgmt. Impression & Plan Acute dyspnea, Pleural effusion, COPD exacerbation, CHF (congestive heart failure) Discharge Plan Visit Data *Final* Discharge Date/Time: 05/01/18 08:59 Chief Complaint: Respiratory Problems Stated Complaint: HAVING TROUBLE BREATHING ED Provider: Mehnaz Valentino Discharge Problem: Acute dyspnea, Pleural effusion, COPD exacerbation, CHF (congestive heart failure) Patient Disposition: Admitted As Inpatient Condition: Good Discharge Instructions Interventions: ED Discharge Assessment Last Done: 05/01/18 08:59 The scribe's documentation has been prepared under my direction and personally reviewed by me in its entirety. I confirm that the note above accurately reflects all work, treatment, procedures, and medical decision making performed by me.
[2018-05-01] MEDS ORDERED: LEVALBUTEROL 0.31MG/3 ML VIAL NEB PRN (08:39)
--- NOTE | 2018-05-01 09:07 | History & Physical Report ---
Date of Service May 01, 2018 Assessment & Plan (1) Cor pulmonale, acute: Has long history of COPD now presenting with increasing leg swelling, pleural effusion and more shortness of breath Chest x-ray did show left more than right effusion and congestive changes Received 1 dose of furosemide intravenously in the ER We will continue with Lasix 40 mg IV twice daily Echocardiogram Cardiology evaluation Present on Admission?: Yes (2) Pleural effusion: Has bilateral pleural effusion,left more than the right Likely secondary to heart failure We will get ultrasound with marker for possible thoracentesis May improve with Lasix Present on Admission?: Yes (3) COPD exacerbation: Has minimal COPD exacerbation We will give a small dose of intravenous Solu-Medrol Nebulized bronchodilator (4) CKD (chronic kidney disease) stage 3, GFR 30-59 ml/min: Monitor PRP while in the hospital Was on hydrochlorothiazide- (5) DM type 2 (diabetes mellitus, type 2): Has been on Januvia and glipizide We will hold Januvia Check hemoglobin A1c and put him on sliding scale insulin coverage (6) HTN (hypertension): Hydrochlorothiazide is on hold Monitor blood pressure Likely will need another antihypertensive (7) H/O laryngeal cancer: No acute problem Also has history of close prostate cancer without any acute issues DVT prophylaxis with subcu heparin CODE STATUS DNR History of Present Illness Chief Complaint: Increasing shortness of breath with leg swelling for the last 3 weeks Primary Care Provider: Dario Etienne DO He is an 82-year-old male significant past medical history of COPD on home oxygen, type 2 diabetes, chronic kidney disease, hypertension, hyperlipidemia, and history of prostate cancer has been complaining of increasing shortness of breath for the last 3 weeks. He also complains to have bilateral leg swelling with has been worse for the last 2 or 1 week. He denies history of any fever and/or chills. He does not have any cough or phlegm. Denies any chest pain and /or palpitation. He denies any abdominal pain, nausea and/or vomiting. He does not have any problem with urine and bowel habit and denies any neurological symptoms. He has not been to his primary care physician for the last 3-4 weeks with these symptoms. He has noted to be hypoxic but that improved with 4 L of nasal cannula in the ER. He has noted to have bilateral pleural effusion on x-ray more on the left than the right with 2+ pedal edema on both sides. He did not have any pneumonia and surprisingly his BNP was not elevated. EKG did show sinus rhythm with frequent ectopics and right bundle branch block. He has had an echo done in 2016 with a normal EF and grade 1 diastolic dysfunction. He was admitted to telemetry unit for continuation of care for possible diagnosis of cor pulmonale. Allergies Allergy/AdvReac Type Severity Reaction Status Date / Time No Known Allergies Allergy . Verified 05/01/18 06:27 Home Medications Home Medications Medication Instructions Recorded Confirmed Type atorvastatin 40 mg PO QAM 05/01/18 05/01/18 History fluticasone-salmeterol [Advair 1 inh INHALATION BID 05/01/18 05/01/18 History Diskus] glipizide 10 mg PO BID 05/01/18 05/01/18 History hydrochlorothiazide 25 mg PO QAM 05/01/18 05/01/18 History multivitamin 1 tab PO QAM 05/01/18 05/01/18 History sitagliptin [Januvia] 100 mg PO QAM 05/01/18 05/01/18 History tiotropium bromide [Spiriva with 1 cap INHALATION QAM 05/01/18 05/01/18 History HandiHaler] Past Med/Surg History Medical History COPD (chronic obstructive pulmonary disease) Diabetes Surgical History History of thoracentesis Social History Current Living Situation: Spouse Other Information That Helps Us Care for You: No Feels Safe at Home: Yes Safety Concerns: Feels Safe At This Time Smoking Status: Former smoker Tobacco Type: cigarettes and pipe Do You Dip or Chew Tobacco: No Hx Alcohol Use: No Hx Substance Use: No Beliefs That Will Affect Care: None Preferred Language: [place] Review of Systems All systems reviewed & are unremarkable except as noted in HPI & below Physical Exam 2 Vital Signs (Past 24 Hours): Last Vital Signs Temp 36.7 C 05/01/18 06:00 Pulse 93 H 05/01/18 08:51 Resp 20 05/01/18 08:51 BP 152/59 H 05/01/18 08:51 Pulse Ox 90 05/01/18 08:51 Physical Exam: Minimal shortness of breath at rest in bed Constitutional: WD/WN, vitals as above Eyes: PERRL, conjunctivae normal, anicteric sclerae ENMT: external ear and nose normal, oropharynx normal Neck: trachea midline, no thyromegaly Respiratory: + respiratory distress (Minimal respiratory distress at rest) Auscultation: + diminished lung sounds (Decreased breath sounds left base and lower lung more than the right side) and + wheezes (Minimal to no wheezing) Cardiovascular: Rate/Rhythm: + abnormal rate and + abnormal rhythm Heart Sounds: normal S1, normal S2 and + murmur (2/6 ejection systolic murmur over precordium) Extremities: + edema (Bilateral leg edema 2+) Gastrointestinal (Abdomen): Inspection/Auscultation: abdomen normal to inspection, + abdomen distended and normal bowel sounds Percussion/Palpation : abdomen soft; abdomen nontender Musculoskeletal: Ankle: + skin erythema (Lower legs) Bilateral leg edema 2+ Neurologic: Alert, awake and oriented x3. Generally Results & Data Laboratory Results Short CBC 05/01/18 Range/Units 06:05 WBC 6.62 (4.8-10.8) K/uL Hgb 15.1 (14.0-18.0) g/dL Hct 46.5 (42-52) % Plt Count 147 (130-400) K/uL BMP 05/01/18 06:05 Sodium 141 Potassium 3.8 Chloride 103 Carbon Dioxide 33 H BUN 28 H Creatinine 1.26 Glucose 109 H Calcium 8.9 Cardiac Enzymes 05/01/18 Range/Units 06:05 Troponin I 0.018 (0-0.045) ng/ml Liver Function 05/01/18 Range/Units 06:05 Total Bilirubin 1.3 H (0.2-1) mg/dl Direct Bilirubin 0.3 H (0-0.2) mg/dl AST 19 (15-37) U/L ALT 23 (12-78) U/L Alkaline Phosphatase 96 (45-117) U/L Albumin 3.4 (3.4-5.0) gm/dl Medications Administered Current Inpatient Medications Furosemide (Lasix) 40 mg IV BID STA Stop: 05/01/18 08:40 Heparin Sodium (Porcine) (Heparin Sodium (Porcine)) 5,000 units SQ Q12 MAYCOL Stop: 05/31/18 08:59 Levalbuterol HCl (Xopenex 0.31mg/3 Ml) 0.31 mg NEB Q6R PRN PRN Reason: Shortness Of Breath Or Wheezing Stop: 05/31/18 13:59
[2018-05-01] MEDS ORDERED: ATORVASTATIN 40 MG TAB PO SCH (10:02)
[2018-05-01] MEDS ORDERED: PERFLUTREN LIPID MICROSPHERE (DEFINITY) IV ONE (10:02)
[2018-05-01 10:22] LABS: INR 1.1 (0.9-1.1); Prothrombin Time 11.4 Seconds (9.0-12.0)
[2018-05-01] MEDS ORDERED: POTASSIUM CHLORIDE 20 MEQ TABCR PO STA (10:51)
--- NOTE | 2018-05-01 11:06 | Cardiology Consultation ---
Date of Consultation May 01, 2018 Assessment & Plan (1) Pleural effusion: Previous pleural effusion transudate of per review of chart. Recurrent effusion currently associated with worsening edema and dyspnea on exertion. Suspect secondary to decompensated diastolic heart failure although with history of prior malignancy and heavy tobacco use further investigation is warranted. Consider pulmonary consultation. (2) Acute diastolic (congestive) heart failure: Continue IV Lasix 40 mg twice daily. Monitor daily weight, GFR, electrolytes, and fluid balance. Sodium restriction less than 1.5 g daily. (3) NSVT (nonsustained ventricular tachycardia): Stat BMP and serum magnesium level ordered. Potassium level 3.8 noted prior to Lasix. We will give 20 mEq of oral potassium chloride now. Cautiously add low-dose beta-rebecca, metoprolol 12.5 mg twice daily. Preserved LV systolic function noted on echocardiogram. Patient without chest discomfort. Initial troponin not significantly elevated. (4) CKD (chronic kidney disease) stage 3, GFR 30-59 ml/min: Creatinine at baseline. (5) COPD (chronic obstructive pulmonary disease): Continue oxygen supplementation. Consider pulmonary evaluation. History of Present Illness Reason for Consultation: Pleural effusion Requesting Physician: Dr. Vishal Menezes Attending Physician: Janeen Menezes MD History of Present Illness 82-year-old male presents to the emergency department with progressive shortness of breath. Chest x-ray demonstrates large left-sided pleural effusion. History of prior right-sided pleural effusion requiring thoracentesis in 2015. Bedside echocardiogram performed demonstrating preserved left ventricular systolic f unction without significant valvular disease. Diastolic function was not adequately assessed. Patient reports progressive dyspnea as well as lower extremity edema since January. Weight per his home scale has not significantly changed recently. Notes orthopnea without PND. No chest discomfort or heaviness. Denies lightheadedness, dizziness, syncope, or near syncope. Reports occasional palpitations. Telemetry reveals frequent premature ventricular complexes, couplets, and 3-15 beat salvos of nonsustained ventricular tachycardia. History also significant for oxygen dependent COPD with a greater than [id number] history. Denies personal history of coronary artery disease or myocardial infarction. Allergies Allergy/AdvReac Type Severity Reaction Status Date / Time No Known Allergies Allergy . Verified 05/01/18 06:27 Home Medications Home Medications Medication Instructions Recorded Confirmed Type atorvastatin 40 mg PO QAM 05/01/18 05/01/18 History fluticasone-salmeterol [Advair 1 inh INHALATION BID 05/01/18 05/01/18 History Diskus] glipizide 10 mg PO BID 05/01/18 05/01/18 History hydrochlorothiazide 25 mg PO QAM 05/01/18 05/01/18 History multivitamin 1 tab PO QAM 05/01/18 05/01/18 History sitagliptin [Januvia] 100 mg PO QAM 05/01/18 05/01/18 History tiotropium bromide [Spiriva with 1 cap INHALATION QAM 05/01/18 05/01/18 History HandiHaler] Patient History Medical History COPD (chronic obstructive pulmonary disease) Diabetes Surgical History History of thoracentesis Social History Communication Ability: Effective Beliefs That Will Affect Care: None marital status: Current Living Situation: Spouse Other Information That Helps Us Care for You: No Feels Safe at Home: Yes Safety Concerns: Feels Safe At This Time Smoking Status: Former smoker Hx Alcohol Use: No Hx Substance Use: No Review of Systems Pertinent positives noted per HPI, comprehensive 10 system review otherwise negative. Physical Exam Vital Signs (Past 24 Hours): Last Vital Signs Temp 36.9 C 05/01/18 10:52 Pulse 92 H 05/01/18 10:52 Resp 19 05/01/18 10:52 BP 126/66 05/01/18 10:52 Pulse Ox 92 05/01/18 10:52 Physical Exam: General: NAD, AAO x3, overweight, chronically ill. HEENT: Normocephalic. Atraumatic. Conjunctiva pink, no scleral icterus. Neck: No carotid bruits, the carotid upstrokes are brisk. No JVD. No HJR Heart: Irregular rhythm, distant heart sounds, normal S-1 and S-2 no S-3 or S-4 gallop. No murmurs or rub appreciated. PMI is not displaced. No RV heave. Lungs: Absent breath sounds at the left lower and mid lung field. No rales , rhonchi, or wheeze. Abdomen: Normal bowel sounds. Soft. Nontender. No masses or organomegaly. No abdominal bruits. Extremities: 2+ bilateral lower extremity pitting edema to the knees. Pulses: radial=2/4, posterior tibial=2/4. Neuro: Cranial nerves grossly intact. No focal motor deficit.
[2018-05-01 11:40] LABS: Calcium 8.9 mg/dl (8.5-10.1); Est GFR (African American) 58.5; Est GFR (Non-African American) 50.5; Magnesium 1.8 mg/dl (1.8-2.4); Potassium 4.3 mmol/L (3.5-5.1)
[2018-05-01] MEDS: METOPROLOL TARTRATE 25 MG TAB PO SCH ×2 (11:50→19:54)
[2018-05-01] MEDS: HEPARIN SOD 5,000 UNIT/0.5 ML VIAL SQ SCH ×2 (11:51→20:46)
[2018-05-01] MEDS: glipiZIDE 5 MG TAB PO SCH ×2 (11:53→17:19)
[2018-05-01] MEDS: FLUTICASONE/SALMETEROL 250/50 (ADVAIR) 14 PUFF/1 INHALER INH SCH ×2 (11:54→19:53)
[2018-05-01] MEDS: MULTIVITAMIN TAB PO SCH (11:55)
[2018-05-01] MEDS: TIOTROPIUM BROMIDE 5 PUFF/90 MCG INH INH SCH (11:55)
[2018-05-01] MEDS: INSULIN ASPART 100 UNITS/ML 3 ML PEN SC SCH ×3 (11:57→20:46)
--- NOTE | 2018-05-01 14:23 | Consultation Report ---
DATE OF CONSULTATION: 05/01/2018 PULMONARY CONSULTATION TIME: 12:50 p.m. REPORT OF CONSULTATION: The patient was seen in room 240, bed 2. He is a very pleasant 82-year-old male with a chief complaint of shortness of breath. He does carry a history of COPD for several years. However, his breathing has changed in the last 2 months. He went to [place] for longer than a month and perhaps almost 2 months. He had increasing shortness of breath when he was there, but he thought it was because he ran out of his Spiriva and he did not get it refilled. His dyspnea has progressed, however. He does follow up in the pulmonary office. He was evaluated there by MARYJANE Nunez on 03/23/2018 and she advised him to restart his meds. He did not appear to be acutely short of breath. This has not resulted in improvement in his status. He came to the Emergency Room in the senior finance manager hours of today being quite tachypneic. Respiratory rate was 28. Oxygen saturation on room air was only 62%. He has noticed that he is short of breath, just walking 10 or 15 feet on level. A couple of months ago, he was actually quite active. He does not feel like he has a cold. There have been no chills, fevers or sweats. He has a mild dry cough which is somewhat chronic. There has been no hemoptysis. He has had no chest pains. In addition to the COPD, he had a history of laryngeal carcinoma several years ago. This was treated with surgery, which he had up in [place] and he had radiation. He also has a history of prostate cancer, treated with radiation therapy. He states he did get an infection after this treatment and had to have some sort of surgery or drainage. Additional history is that in 2016, he had a right pleural effusion. Thoracentesis was done twice and then subsequently he had a right thoracoscopy with pleurectomy by Dr. Fox. That problem has not recurred since then. PAST MEDICAL HISTORY: 1. COPD. 2. Chronic kidney disease. 3. Hypertension. 4. Diabetes type 2. 5. Laryngeal CA. 6. Prostate CA. 7. Elevated right technetium-99m. 8. Questionable diastolic CHF. PAST SURGICAL HISTORY: 1. Cataract surgery bilaterally. 2. Knee surgery. 3. Thoracoscopy as noted. SOCIAL HISTORY: Tobacco: He was a cigarette smoker for about 20 years and then smoked pipe. He quit smoking about 25 years ago. ETOH - rare. ALLERGIES: No known allergies. FAMILY HISTORY: Mother from breast cancer. Father , [place]. The patient did have pulmonary function testing done in 2014. Even at that time, this showed a severe obstructive pattern with no change following bronchodilators. REVIEW OF SYSTEMS: The patient's energy level has been good. It is just that since he cannot breathe, he has become much less active. He denies headache or dizziness. He has had no sinus symptoms. Appetite is good. Weight has been stable. No GI complaints. He is not complaining of pain. He does have nocturia x2 or 3 as well as some degree of urinary frequency during the day as well. The remainder of the review of systems is negative. Ten systems reviewed. MEDICATIONS: 1. Methylprednisolone 20 mg q. 12. 2. Furosemide 40 mg b.i.d. 3. SubQ heparin. 4. Advair 250/50 one puff b.i.d. 5. Spiriva 1 daily. 6. Levalbuterol p.r.n. 7. The patient's other medications mainly for diabetes, hypertension, and high cholesterol. PHYSICAL EXAMINATION: GENERAL: Mr. Ferro is a very pleasant 82-year-old male who was cooperative, alert and oriented. He was in no distress at rest. VITAL SIGNS: His weight is 114.6 kilograms with a BMI of 35.7. HEENT: Eye exam suggested implants bilaterally from prior surgeries. Nares were clear. Mouth exam shows a Mallampati grade 2. NECK: Palpation of the neck reveals no lymph nodes. His voice is hoarse and he states this has been since his throat cancer surgery. CHEST: Percussion of the chest reveals dullness in the left chest compared with the right. Auscultation reveals diminished breath sounds in the mid and lower chest on the left compared with the right. There is egophony in the left lower chest. Temperature 36.9. Respiratory rate 19. Saturation 92% on 5 liters. There was no accessory muscle use. ABDOMEN: Somewhat obese. Bowel sounds were present. There was no tenderness to palpation, masses or organomegaly. EXTREMITIES: Revealed +2 to +3 edema of both lower extremities. There was mild erythema in the lower extremities. LABORATORY DATA: White count is 6.62. Hemoglobin 15.1. Platelets 147,000. Differential was unremarkable. INR is 1.1. Electrolytes show sodium 139, potassium 4.3, chloride 100, bicarbonate 33. BUN 29, creatinine 1.3. Blood sugar was 149. Calcium 8.9. Magnesium 1.8. Troponin was normal. ProBNP was normal at 679. Chest x-ray shows what appears to be a left pleural effusion, moderate in size with probable underlying atelectatic changes. Echocardiogram showed a normal ejection fraction of 60-65%. The right ventricle was grossly normal. EKG shows a sinus rhythm. There are frequent PVCs. There is a right bundle-branch block. IMPRESSION: 1. Moderate left pleural effusion of undetermined etiology. 2. Status post right pleurectomy by video-assisted thoracoscopy. 3. Chronic obstructive pulmonary disease - severe by pulmonary functions. 4. Elevation of the right hemidiaphragm. COMMENTS AND RECOMMENDATIONS: The patient's symptoms are primarily those of dyspnea and this correlates with accumulation of a left pleural effusion. I believe he should have a thoracentesis for diagnosis and treatment. He has requested that if he needs any procedures done that we asked Dr. Fox to do so and thus I will put in a consult for him. We need to know of course, if this fluid is a transudate or exudate and if it is benign or not. All of those answers help determine what needs to be done after this. Thank you very much for asking me to assist in his care.
[2018-05-01] MEDS ORDERED: MAGNESIUM SULFATE / D5W 1 GM/100 ML BAG IV ONE (14:40)
--- NOTE | 2018-05-01 14:41 | Ultrasound Report ---
US effusion-chest/mediastinum CLINICAL HISTORY: Pleural effusion COMPARISON STUDY: Chest x-ray dated 05/01/2018 FINDINGS: There is a left pleural effusion with estimated volume of 1 L. This is marked for possible subsequent thoracentesis. No right effusion was identified. IMPRESSION: Left pleural effusion. This was marked for possible subsequent thoracentesis Electronically signed by: John Hayes M.D. 05/01/2018 2:39 PM
[2018-05-01 17:06] LABS: iSTAT Arterial Blood Gas HCO3 30 meg/L (19-24); iSTAT Arterial Blood Gas pCO2 47 mmHg (35-46); iSTAT Arterial Blood Gas pH 7.41 (7.35-7.45); iSTAT Carbon Dioxide 31 mEq/l (24-31); iSTAT Site Heel Stick
[2018-05-01] MEDS: FUROSEMIDE 40 MG in SYRINGE 0 ML IV SCH (17:19)
--- NOTE | 2018-05-01 17:24 | XRay Report ---
XR chest 1V portable CLINICAL HISTORY: 82 years-old Male presenting with thoracentesis. TECHNIQUE: Portable upright AP view of the chest was obtained. COMPARISON: 05/01/2018. FINDINGS: Atherosclerosis of the aortic arch. Cardiac silhouette enlarged. Persistent pulmonary vascular promin ence. Interval decreased size of the left pleural effusion, which is now small to moderate. No pneumo thorax. Persistent elevation of the right hemidiaphragm. Improved aeration at the left lung base and unchanged aeration at the right lung base. Degenerative changes of the thoracic spine. External leads project over the right upper quadrant degrading evaluation. IMPRESSION: 1. Significant decrease in size of the left pleural effusion status post thoracentesis. No pneumotho rax. 2. Pertinent aeration of the left lung base. 3. Cardiomegaly with persistent volume overload. Electronically signed by: Ajith Montez M.D. 05/01/2018 5:22 PM
[2018-05-01 17:52] LABS: Glucose Pleural Fluid 261 mg/dl
[2018-05-01 18:06] LABS: Amylase Pleural Fluid 30 U/L; LDH Pleural Fluid 138 U/L; Total Protein Pleural Fluid 4.4 g/dl
[2018-05-01 18:18] LABS: Appearance Pleural Fluid CLEAR; Color Pleural Fluid YELLOW; Mononuclear WBC Pleural 78.3 %; Polynuclear WBC Pleural 21.7 %; RBC Pleural Fluid (A) < 3000 /uL; Source Pleural Fluid LEFT LUNG; WBC Pleural Fluid (A) 651 /uL
--- NOTE | 2018-05-01 19:49 | Consultation Report ---
DATE OF CONSULTATION: 05/01/2018 REASON FOR CONSULTATION: Left pleural effusion. HISTORY OF PRESENT ILLNESS: Nico Ferro is an 82-year-old male that I gotten to know fairly well 3 years ago, almost today I did an extensive pleurectomy, thoracoscopy, and right pleural effusion. He was quite happy with this. We have tapped him a couple of times. I was quite happy with what we found. This was a benign pleuritis pathologically. He was hospitalized for 4 days after we performed this procedure and it should be noted, he has a history of prostate carcinoma and laryngeal carcinoma. He is a electrical maintenance engineer. He became more and more short of breath, especially over the last month and I was asked to evaluate him from a thoracic surgery standpoint as he now had a left pleural effusion, which was rather large. PAST MEDICAL HISTORY: 1. Benign recurrent pleural effusion on the right. 2. COPD. 3. Diabetes. 4. Hypertension. 5. Renal insufficiency. 6. History of prostate carcinoma. 7. History of laryngeal carcinoma. 8. Diastolic dysfunction. PAST SURGICAL HISTORY: 1. Right thoracoscopy with extensive decortication and pleurectomy. 2. Knee surgery. 3. Cataract surgery bilaterally. MEDICATIONS: 1. Atorvastatin. 2. Advair Diskus. 3. Spiriva. 4. Januvia. 5. Hydrochlorothiazide. 6. Glipizide. 7. Multivitamins. ALLERGIES: No known drug allergies. SOCIAL HISTORY: The patient is a former smoker. 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 Lives with his and dog at home. He smoked a pipe "continuously" for 25 years but quit 30 years ago. He does not use drugs or drink alcohol. FAMILY MEDICAL HISTORY: Noncontributory in this 82-year-old male. REVIEW OF SYSTEMS: The patient has become more short of breath, which is his biggest complaint. Otherwise, he has not really complained of pain. He just became more short of breath. His weight has been relatively stable. He denies fevers or chills. He occasionally will have some white sputum. He is recovering from his surgery quite nicely and has no pain on the right side. He has had no wound breakdown. He has had no GI or complaints. He states now he is unable to walk his dog. He has had no productive cough, fevers, or chills. Denies any neurologic events such as amaurosis fugax. He has had no focal deficits. He has had no decreased hearing or visual symptoms. PHYSICAL EXAMINATION: GENERAL: He is a healthy appearing male who 5 feet 10-1/2 inches tall and weighs about 240 pounds. HEENT: Wears glasses. His extraocular movements are intact. Pupils are equally round and reactive. Sclerae are pale and anicteric. He is hoarse, however. He has been hoarse since he got his radiation therapy. I detect no oral candidiasis and his tongue is midline. NECK: Thick, supple. He has no supraclavicular or cervical lymphadenopathy. Specifically, he has no tracheal deviation or neck vein distention. LUNGS: He has decreased breath sounds on the left. I can hear pretty good breath sounds on the right with no wheezing. His right thoracoscopy incisions have healed well. HEART: He has a regular rate and rhythm of his heart. ABDOMEN: Obese, but soft. I can palpate pedal pulses. He has no joint effusions but has trace pedal edema and pretibial edema. NEUROLOGIC: He is awake, alert, and oriented. ASSESSMENT AND PLAN: New onset left pleural effusion, which is symptomatic. We will offer him a thoracentesis. I have discussed his case with Dr. Johnston.
[2018-05-01] MEDS: methylPREDNISolone 20 MG in SYRINGE 0 ML IV SCH (19:52)
[2018-05-01] MEDS: ATORVASTATIN 40 MG TAB PO SCH (19:54)
--- NOTE | 2018-05-01 19:54 | Operative Report ---
DATE OF OPERATION: 05/01/2018 PROCEDURE PERFORMED: Ultrasound guided left thoracentesis. SURGEON: Anupam Fox MD RADIATION CONTROL TECHNICIAN: ARIAS Sifuentes ANESTHESIA: Local. DESCRIPTION OF PROCEDURE: With the patient in a seated position, an ultrasound was used to find a good window into the patient's left pleural cavity. We saw good window into fluid. He was prepped and draped in the usual sterile fashion. After appropriate timeout had been called, a 25-gauge needle with 1% xylocaine was used to anesthetize the skin and subcutaneous tissue at the point we had marked with the ultrasound. A large bore needle was used to anesthetize the deeper tissues and we got serous fluid back. A guidewire was inserted through the needle and the needle removed. An introducer dilator was slid over the guidewire gently and pulled back and the triple lumen catheter was slid into 17 cm. An 1800 mL of a rust-colored fluid was drained. He tolerated it quite well and when he started having some mild reexpansion pain with coughing, I stopped. He felt better after we had done it, although I stopped before we drained all of it. His x-ray showed no evidence of a pneumothorax. He still has a small amount of fluid there. We will see how he looks in the morning. We will repeat a film at that time. His pH was 7.41. It does not appear we are dealing with any type of infection. I attest to the content of the Intraoperative Record and any orders documented therein. Any exception s are noted below.
--- NOTE | 2018-05-02 07:01 | XRay Report ---
XR chest 1V portable CLINICAL HISTORY: 82 years-old Male presenting with effusion . TECHNIQUE: Portable upright AP view of the chest was obtained. COMPARISON: 05/01/2018. FINDINGS: Atherosclerosis of the aortic arch. Cardiac silhouette enlarged. Persistent pulmonary vascular promin ence. Persistent bibasilar opacities. Elevation of the right hemidiaphragm. Small left pleural effusi on unchanged. Trace right pleural effusion unchanged. No new focal opacity. No pneumothorax. Degenera tive changes of the thoracic spine. Several external leads overlie the right upper quadrant degrading evaluation. IMPRESSION: 1. Trace right and small left pleural effusions with bibasilar atelectasis. 2. Cardiomegaly with persistent volume overload. Electronically signed by: Ajith Montez M.D. 05/02/2018 6:59 AM
[2018-05-02 07:54] LABS: Basophils # (auto) 0.01 K/uL (0-0.2); Basophils % (auto) 0.1 %; Hematocrit (blood only) 47.3 % (42-52); Hemoglobin 15.2 g/dL (14.0-18.0); Immature Granulocytes # (auto) 0.02 K/uL (0.00-0.02); Immature Granulocytes % (auto) 0.2 %; Lymphocytes # (auto) 0.71 K/uL (1.2-3.4); Lymphocytes % (auto) 6.6 %; Mean Corpuscular Hgb Conc 32.1 g/dL (32-36); Mean Corpuscular Volume 93.8 fL (80-100); Mean Platelet Volume 10.7 fL (7.4-10.4); Monocytes # (auto) 0.62 K/uL (0.11-0.59); Monocytes % (auto) 5.8 %; Neutrophils # (auto) 9.41 K/uL (1.4-6.5); Neutrophils % (auto) 87.3 %; Platelet Count 169 K/uL (130-400); RDW Coefficient of Variation 14.5 % (11.5-14.5); RDW Standard Deviation 49.6 fL (36.4-46.3); Red Blood Count 5.04 M/uL (4.7-6.1); White Blood Count 10.77 K/uL (4.8-10.8)
[2018-05-02] MEDS: MULTIVITAMIN TAB PO SCH (08:09)
[2018-05-02] MEDS: FUROSEMIDE 40 MG in SYRINGE 0 ML IV SCH ×2 (08:10→17:15)
[2018-05-02] MEDS: methylPREDNISolone 20 MG in SYRINGE 0 ML IV SCH (08:10)
[2018-05-02] MEDS: METOPROLOL TARTRATE 25 MG TAB PO SCH ×2 (08:10→21:41)
[2018-05-02] MEDS: FLUTICASONE/SALMETEROL 250/50 (ADVAIR) 14 PUFF/1 INHALER INH SCH ×2 (08:11→21:42)
[2018-05-02] MEDS: glipiZIDE 5 MG TAB PO SCH ×2 (08:11→17:16)
[2018-05-02] MEDS: TIOTROPIUM BROMIDE 5 PUFF/90 MCG INH INH SCH (08:13)
[2018-05-02] MEDS: HEPARIN SOD 5,000 UNIT/0.5 ML VIAL SQ SCH ×2 (08:13→21:39)
[2018-05-02] MEDS: INSULIN ASPART 100 UNITS/ML 3 ML PEN SC SCH ×4 (08:14→21:38)
[2018-05-02 08:28] LABS: BUN Creatinine Ratio 27.2 (10-20); Calcium 8.6 mg/dl (8.5-10.1); Creatinine Clr Calc Pharmacy 50.4 ml/min; Est GFR (African American) 54.9; Est GFR (Non-African American) 47.4; Magnesium 2.1 mg/dl (1.8-2.4); Potassium 4.1 mmol/L (3.5-5.1)
--- NOTE | 2018-05-02 11:49 | Cardiology Progress Note ---
Date of Service May 02, 2018 Assessment & Plan (1) Pleural effusion: Status post thoracentesis with 1800 cc drained. Patient improved clinically. Continue IV diuresis per (2) Acute diastolic (congestive) heart failure: Clinically improving. Continue IV Lasix 40 mg twice daily. Monitor daily weight, GFR, electrolytes, and fluid balance. Sodium restriction less than 1.5 g daily. (3) NSVT (nonsustained ventricular tachycardia): No recurrent ventricular tachycardia overnight. PVCs less frequent. Continue low-dose beta-rebecca therapy. Replace electrolytes as needed. Continue to monitor telemetry. Preserved LV systolic function noted on echocardiogram. Patient will require outpatient ischemic evaluation. (4) CKD (chronic kidney disease) stage 3, GFR 30-59 ml/min: (5) COPD (chronic obstructive pulmonary disease): Continue oxygen supplementation. Subjective Patient seen and examined at the bedside. Left-sided thoracentesis performed this a.m. 1800 cc of rust colored fluid drained. Fluid analysis pending at this time. Diuresing well. Edema improved. PVCs less frequent. No recurrent ventricular tachycardia. Patient denies chest pain or palpitations. Oxygenation improved. Review of Systems All systems reviewed & are unremarkable except as noted in HPI & below Physical Exam Vital Signs (Past 24 Hours): Last Vital Signs Temp 36.6 C 05/02/18 08:00 Pulse 64 05/02/18 08:00 Resp 16 05/02/18 08:00 BP 119/53 L 05/02/18 08:00 Pulse Ox 91 05/02/18 08:00 Physical Exam: General: NAD, AAO x3, overweight, chronically ill. HEENT: Normocephalic. Atraumatic. Conjunctiva pink, no scleral icterus. Neck: No carotid bruits, the carotid upstrokes are brisk. No JVD. No HJR Heart:regular rhythm with occasional ectopy, distant heart sounds, normal S-1 and S-2 no S-3 or S-4 gallop. No murmurs or rub appreciated. PMI is not displaced. No RV he ave. Lungs: Absent breath sounds at the left lower and mid lung field. No rales , rhonchi, or wheeze. Abdomen: Normal bowel sounds. Soft. Nontender. No masses or organomegaly. No abdominal bruits. Extremities: 2+ bilateral lower extremity pitting edema to the knees. Pulses: radial=2/4, posterior tibial=2/4. Neuro: Cranial nerves grossly intact. No focal motor deficit.
--- NOTE | 2018-05-02 14:31 | Progress Note ---
DATE: 05/02/2018 Mr. Ferro was seen today. He feels "much better." His oxygen saturation is 97% on 3 liters. We drained about 1800 mL yesterday. It appeared to be transudate with an LDH of 138. Glucose was 261 and the pH was 7.41. Does not appear to be infected. Cytology of course is still pending. There is no growth on 24 hours on his fluid.
--- NOTE | 2018-05-02 15:19 | Hospitalist Progress Note ---
Date of Service May 02, 2018 Assessment & Plan (1) Cor pulmonale, acute: Has long history of COPD now presenting with increasing leg swelling, pleural effusion and more shortness of breath Chest x-ray did show left more than right effusion and congestive changes Received 1 dose of furosemide intravenously in the ER We will continue with Lasix 40 mg IV twice daily Echocardiogram: Left-sided moderate pleural effusion, mild concentric LVH, EF of 60-65%, right ventricle is normal, dilatation of the aortic root to 3.9 cm. Cardiology evaluation-appreciate input and recommendation Continue intravenous Lasix for now Clinically improved (2) Pleural effusion: Has bilateral pleural effusion,left more than the right Likely secondary to heart failure We will get ultrasound with marker for possible thoracentesis May improve with Lasix Status post thoracentesis of 1800 mL's Low LDH-suggest transudate Continue with diuretics (3) COPD exacerbation: Has minimal COPD exacerbation We will give a small dose of intravenous Solu-Medrol Nebulized bronchodilator COPD seems to be stable Appreciate pulmonary input and recommendation (4) CKD (chronic kidney disease) stage 3, GFR 30-59 ml/min: Monitor PRP while in the hospital Was on hydrochlorothiazide- Creatinine remains stable (5) DM type 2 (diabetes mellitus, type 2): Has been on Januvia and glipizide We will hold Januvia Check hemoglobin A1c and put him on sliding scale insulin coverage (6) HTN (hypertension): Hydrochlorothiazide is on hold Monitor blood pressure Likely will need another antihypertensive (7) H/O laryngeal cancer: No acute problem Also has history of close prostate cancer without any acute issues DVT prophylaxis with subcu heparin CODE STATUS DNR Subjective He is an 82-year-old male significant past medical history of COPD on home oxygen, type 2 diabetes, chronic kidney disease, hypertension, hyperlipidemia, and history of prostate cancer has been complaining of increasing shortness of breath for the last 3 weeks. 05/02 Patient was seen and examined in telemetry unit He has been feeling a lot better following paracentesis and use of intravenous diuretics Denies any significant symptoms as of this morning Physical Exam 2 Vital Signs (Past 24 Hours): Last Vital Signs Temp 37.1 C 05/02/18 11:50 Pulse 67 05/02/18 11:50 Resp 18 05/02/18 11:50 BP 136/81 05/02/18 11:50 Pulse Ox 97 05/02/18 11:50 Physical Exam: No apparent distress at rest Constitutional: WD/WN, vitals as above Eyes: PERRL, conjunctivae normal, anicteric sclerae ENMT: external ear and nose normal, oropharynx normal Neck: trachea midline, no thyromegaly Respiratory: + respiratory distress (Minimal respiratory distress at rest) Auscultation: + diminished lung sounds (Decreased breath sounds left base and lower lung more than the right side) and + wheezes (Minimal to no wheezing) Cardiovascular: Rate/Rhythm: + abnormal rate and + abnormal rhythm Heart Sounds: normal S1, normal S2 and + murmur (2/6 ejection systolic murmur over precordium) Extremities: + edema (Bilateral leg edema 2+) Gastrointestinal (Abdomen): Inspection/Auscultation: abdomen normal to inspection, + abdomen distended and normal bowel sounds Percussion/Palpation : abdomen soft; abdomen nontender Musculoskeletal: Ankle: + skin erythema (Lower legs) Neurologic: Alert, awake and oriented x3. Generally weak Results & Data Laboratory Results Short CBC 05/02/18 Range/Units 07:26 WBC 10.77 (4.8-10.8) K/uL Hgb 15.2 (14.0-18.0) g/dL Hct 47.3 (42-52) % Plt Count 169 (130-400) K/uL BMP 05/02/18 07:26 Sodium 138 Potassium 4.1 Chloride 98 Carbon Dioxide 34 H BUN 37 H Creatinine 1.37 Glucose 146 H Calcium 8.6 Medications Administered Current Inpatient Medications Atorvastatin Calcium (Lipitor) 40 mg PO HS [facility] Stop: 05/31/18 20:59 Last Admin: 05/01/18 19:54 Dose: 40 mg Glipizide (Glucotrol) 10 mg PO BIDM [facility] Stop: 05/31/18 11:29 Last Admin: 05/02/18 08:11 Dose: 10 mg Heparin Sodium (Porcine) (Heparin Sodium (Porcine)) 5,000 units SQ Q12 [facility] Stop: 05/31/18 08:59 Last Admin: 05/02/18 08:13 Dose: 5,000 units Methylprednisolone 20 mg/ (Syringe) 0.32 mls @ 1.5 mls/min IV Q12H [facility] Stop: 05/31/18 18:59 Last Admin: 05/02/18 08:10 Dose: 1.5 mls/min Furosemide 40 mg/ Syringe 4 mls @ 4 mls/min IV [id number] [facility] Stop: 05/31/18 16:59 Last Admin: 05/02/18 08:10 Dose: 4 mls/min Insulin Aspart (Novolog Flexpen) 0 units SC ACHS [facility] Stop: 05/31/18 11:29 Last Admin: 05/02/18 12:13 Dose: 8 units Levalbuterol HCl (Xopenex 0.31mg/3 Ml) 0.31 mg NEB Q6R PRN PRN Reason: Shortness Of Breath Or Wheezing Stop: 05/31/18 13:59 Metoprolol Tartrate (Lopressor) 12.5 mg PO BID [facility] Stop: 05/31/18 10:59 Last Admin: 05/02/18 08:10 Dose: 12.5 mg Multivitamins (Multivitamin Tab) 1 tab PO QAM [facility] Stop: 05/31/18 10:01 Last Admin: 05/02/18 08:09 Dose: 1 tab Fluticasone/Salmeterol (Advair Diskus 250/50) 1 puffs INH BID [facility] Stop: 05/31/18 10:01 Last Admin: 05/02/18 08:11 Dose: 1 puffs Tiotropium [place] (Spiriva) 1 puffs INH QAM [facility] Stop: 05/31/18 10:01 Last Admin: 05/02/18 08:13 Dose: 1 puffs
--- NOTE | 2018-05-02 19:19 | Progress Note ---
DATE: 05/02/2018 TIME: 05:30. SUBJECTIVE: The patient is feeling much better since he had a thoracentesis yesterday by Dr. Fox. Total of 1800 mL of fluid was removed from the left side. The patient tolerated the procedure very well. His breathing feels much better. He states he is markedly less short of breath. He did walk around the ma today without oxygen, although apparently his saturations went down to 82%. Overall, however, the patient feels great. OBJECTIVE: GENERAL: The patient appears comfortable. Temperature is 36.7. HEART: Heart rate is 77 per minute. Occasional extra systole was heard. Blood pressure 168/70. LUNGS: Auscultation of the lung murphy still reveals decreased breath sounds on the left compared with the right side. Respiratory rate 16. Saturation 96% on 3 liters. LABORATORY DATA: Pleural fluid analysis shows the pleural fluid LDH to be 138. This is relatively low, although we do not have a serum LDH to compare. The pleural fluid protein was 4.4 with a serum protein of 6.9. The protein ratio greater than 0.5 would suggest an exudate. The pleural glucose was significantly elevated at 261. Pleural amylase was normal at 30. Chest x-ray today showed significant improvement in the aeration of the left lower lung field compared with prior x-ray on admission. IMPRESSION: 1. Left pleural effusion of undetermined etiology. 2. Status post right pleurectomy. 3. Severe chronic obstructive pulmonary disease. 4. Chronic elevation of right hemidiaphragm. COMMENTS AND RECOMMENDATIONS: I will check a serum LDH just to see how that compares with the pleural LDH.We are awaiting cytology. Clinically, the patient is doing well. I believe the methylprednisolone can be stopped. I suspect the diuretics could be decreased. From a respiratory perspective, the patient likely could be discharged soon. ABAD
[2018-05-02] MEDS: ATORVASTATIN 40 MG TAB PO SCH (21:43)
[2018-05-03 07:50] LABS: BUN Creatinine Ratio 27.8 (10-20); Calcium 8.6 mg/dl (8.5-10.1); Creatinine Clr Calc Pharmacy 41.3 ml/min; Est GFR (African American) 43.2; Est GFR (Non-African American) 37.3; Magnesium 2.1 mg/dl (1.8-2.4); Potassium 3.9 mmol/L (3.5-5.1)
[2018-05-03 08:07] LABS: Estimated Average Glucose 160 mg/dl; Hemoglobin A1C 7.2 % (4.5-5.6)
--- NOTE | 2018-05-03 08:11 | XRay Report ---
XR chest 1V portable HISTORY: 82 years-old Male effusion follow-up study in a patient with left pleural effusion and acu te shortness of breath COMPARISON: Chest radiograph 05/02/2018 TECHNIQUE: Portable AP view of the chest FINDINGS: Cardiac silhouette is mildly enlarged, unchanged. Calcification of the thoracic aortic arch. No pneum othorax. Trace right and small to moderate left pleural effusions redemonstrated along with bibasilar opacities, unchanged from comparison. Degenerative changes of the shoulders and spine. IMPRESSION: 1. Stable exam with small to moderate left and trace right pleural effusions. 2. Bibasilar opacities are suggestive of atelectasis. The above report was generated using voice recognition software. It may contain grammatical, syntax o r spelling errors. Electronically signed by: Edwin Vizcarra M.D. 05/03/2018 8:10 AM
[2018-05-03] MEDS: INSULIN ASPART 100 UNITS/ML 3 ML PEN SC SCH ×4 (09:04→20:36)
[2018-05-03] MEDS: FLUTICASONE/SALMETEROL 250/50 (ADVAIR) 14 PUFF/1 INHALER INH SCH ×2 (09:05→20:35)
[2018-05-03] MEDS: FUROSEMIDE 40 MG in SYRINGE 0 ML IV SCH (09:06)
[2018-05-03] MEDS: HEPARIN SOD 5,000 UNIT/0.5 ML VIAL SQ SCH ×2 (09:07→20:38)
[2018-05-03] MEDS: METOPROLOL TARTRATE 25 MG TAB PO SCH ×2 (09:08→20:38)
[2018-05-03] MEDS: TIOTROPIUM BROMIDE 5 PUFF/90 MCG INH INH SCH (09:09)
[2018-05-03] MEDS: MULTIVITAMIN TAB PO SCH (09:09)
[2018-05-03] MEDS: glipiZIDE 5 MG TAB PO SCH ×2 (09:10→17:05)
--- NOTE | 2018-05-03 11:08 | Cardiology Progress Note ---
Date of Service May 03, 2018 Assessment & Plan (1) Pleural effusion: Status post thoracentesis with 1800 cc drained. Patient improved clinically. Discontinue IV diuretic therapy today. Will plan to initiate Lasix 40 mg daily in a.m. pending review of basic metabolic panel. (2) Acute diastolic (congestive) heart failure: Clinically improving. Discontinue intravenous diuretic therapy. Monitor daily weight, GFR, electrolytes, and fluid balance. Sodium restriction less than 1.5 g daily. Tentative plan for oral diuretic therapy in a.m. pending review of base metabolic panel. (3) NSVT (nonsustained ventricular tachycardia): No recurrent ventricular tachycardia overnight. PVCs less frequent. Continue low-dose beta-rebecca therapy. Replace electrolytes as needed. Continue to monitor telemetry. Preserved LV systolic function noted on echocardiogram. Patient will require outpatient ischemic evaluation. (4) CKD (chronic kidney disease) stage 3, GFR 30-59 ml/min: Hold intravenous diuretics. (5) COPD (chronic obstructive pulmonary disease): Continue oxygen supplementation. Pulmonary medicine input appreciated. Subjective Patient seen and examined at the bedside. Edema continues to improve. Creatinine trending upward today. Patient requesting discharge. Frequent PVCs noted on telemetry. Rare couplets and triplets noted. No recurrent runs of nonsustained ventricular tachycardia. Tolerating low-dose beta-rebecca therapy. Patient offers no complaints at this time. Review of Systems All systems reviewed & are unremarkable except as noted in HPI & below Physical Exam Vital Signs (Past 24 Hours): Last Vital Signs Temp 37.1 C 05/03/18 07:12 Pulse 84 05/03/18 07:12 Resp 21 05/03/18 07:12 BP 100/57 L 05/03/18 07:12 Pulse Ox 90 05/03/18 09:34 Physical Exam: General: NAD, AAO x3, overweight, chronically ill. HEENT: Normocephalic. Atraumatic. Conjunctiva pink, no scleral icterus. Neck: No carotid bruits, the carotid upstrokes are brisk. No JVD. No HJR Heart: regular rhythm with occasional ectopy, distant heart sounds, normal S-1 and S-2 no S-3 or S-4 gallop. No murmurs or rub appreciated. PMI is not displaced. No RV heave. Lungs: Absent breath sounds at the left lower lung field. No rales , rhonchi, or wheeze. Abdomen: Normal bowel sounds. Soft. Nontender. No masses or organomegaly. No abdominal bruits. Extremities: 2+ bilateral lower extremity pitting edema to the knees. Pulses: radial=2/4, posterior tibial=2/4. Neuro: Cranial nerves grossly intact. No focal motor deficit.
--- NOTE | 2018-05-03 13:21 | Progress Note ---
DATE: 05/03/2018 PULMONARY PROGRESS NOTE TIME: 12:50 p.m. SUBJECTIVE: The patient states he feels quite well. His breathing is about the same as yesterday. He does not notice any significant difference. He did state that he walked yesterday with therapy and his oxygen levels did decrease. He is not having any chest pains. OBJECTIVE: GENERAL: The patient looks comfortable. He was sleeping when I came into the room, but he aroused readily. He just finished his lunch. He was in no distress. VITAL SIGNS: Temperature 36.6. Heart rate 62 per minute. Rhythm regular. Blood pressure 111/67. LUNGS: Lung murphy revealed decreased breath sounds on the left compared with the right side. Respiratory rate 19. Saturation 95% on 3 liters. EXTREMITIES: Showed trace edema of the lower extremities. Urine output for the prior 24 hours was showing a very good diuresis of 3050. LABORATORY DATA: Review of the patient's pleural LDH was 138. Serum LDH done was 198. The ratio is 0.69, which would be compatible with an exudate. As previously noted, the pleural fluid protein to serum protein ratio was above 0.5. These would suggest that the fluid is an exudate. However, the patient has been on diuretics, which can alter these results. BUN today was 47 with a creatinine of 1.67. Prior BUN was 37 with creatinine 1.37. Pleural fluid cytology is still pending. IMPRESSION: 1. Left pleural effusion - apparently an exudate. 2. Status post right pleurectomy. 3. Severe chronic obstructive pulmonary disease. 4. Elevated right hemidiaphragm. COMMENTS: The patient seemed to be stable. His exam continues to suggest some diminished breath sounds likely from residual or recurrent pleural effusion. Would still await the results of course of the pleural fluid cytology. The patient is on his Advair Diskus as well as tiotropium and would continue those. He does have levalbuterol p.r.n. if needed. The methylprednisolone was previously stopped and he does not seem to be any different having done so.
--- NOTE | 2018-05-03 17:59 | Hospitalist Progress Note ---
Date of Service May 03, 2018 Assessment & Plan (1) Cor pulmonale, acute: H/O COPD--presents with increasing leg swelling, pleural effusion and worsening shortness of breath CXR: Cardiomegaly with pulmonary vascular congestion. Moderate left pleural effusion with bibasilar opacities suggesting atelectasis. Pneumonitis not excluded. Trace right pleural effusion. Continue diuretics ECHO: Left-sided moderate pleural effusion, mild concentric LVH, EF of 60-65%, right ventricle is normal, dilatation of the aortic root to 3.9 cm. Appreciate Cardiology and Pulmnology Input Needs 2 step prior to discharge (2) Pleural effusion: B/L pleural effusion Likely secondary to acute on chronic diastolic heart failure S/P thorocentesis Continue diuretics Supplemental Oxygen as needed (3) COPD exacerbation: Mild COPD exacerbation Received IV Solu-Medrol Continue Nebs, home inhaler No wheezing on exam currently Appreciate pulmonary input (4) CKD (chronic kidney disease) stage 3, GFR 30-59 ml/min: CHUCK ON CKD III Secondary to diuretics Hold IV Lasix Today monitor renal functon Home HCTZ on hold (5) DM type 2 (diabetes mellitus, type 2): Has been on Januvia and glipizide A1C: 7.2 Continue sliding scale insulin (6) HTN (hypertension): Stable Continue Metoprolol (7) H/O laryngeal cancer: No acute issues Also has H/O prostate cancer DVT px: Heparin SQ CODE STATUS DNR Subjective Patient is seen and examined at bedside States feeling well today Eager to get discharged Denies chest pain, SOB, dizziness Offers no complaints Family at bedside Physical Exam Vital Signs (Past 24 Hours): Last Vital Signs Temp 36.7 C 05/03/18 15:22 Pulse 72 05/03/18 15:22 Resp 18 05/03/18 15:22 BP 116/66 05/03/18 15:22 Pulse Ox 94 05/03/18 15:22 Physical Exam: Physical Exam: Vitals signs as noted above General Appearance:Moderately built and nourished, no apparent distress Head: normocephalic, Atraumatic Eyes: normal inspection, EOMI Neck: supple, Trachea midline Respiratory/Chest: Decreased breath sounds, CTA Cardiovascular: S1, S2, No murmur Abdomen/GI:Soft, Non tender, Bowel sounds present Extremities/Musculoskelatal:normal inspection, + pedal edema Neurologic/Psych:AAOX3, grossly no focal neurological deficits Skin: normal color, warm Results & Data Laboratory Results [facility] 05/03/18 07:02 Sodium 137 Potassium 3.9 Chloride 96 L Carbon Dioxide 37 H BUN 47 H Creatinine 1.67 H D Glucose 82 Calcium 8.6 Diagnostic Findings CXR: 1. Stable exam with small to moderate left and trace right pleural effusions. 2. Bibasilar opacities are suggestive of atelectasis.
--- NOTE | 2018-05-03 19:12 | Progress Note ---
DATE: 05/03/2018 Mr. Ferro was seen today. He still "feels great." His fluid is a borderline exudate; however, the cytology is negative. He states he is breathing well. His thoracentesis site was clean. At this point, I would simply follow him and if his fluid recurs then we will consider doing a repeat PleurX or perhaps a thoracoscopy.
[2018-05-03] MEDS: ATORVASTATIN 40 MG TAB PO SCH (20:38)
[2018-05-04 07:00] LABS: Hematocrit (blood only) 47.9 % (42-52); Hemoglobin 15.1 g/dL (14.0-18.0); Mean Corpuscular Hgb Conc 31.5 g/dL (32-36); Mean Corpuscular Volume 95.4 fL (80-100); Mean Platelet Volume 10.7 fL (7.4-10.4); Platelet Count 141 K/uL (130-400); RDW Coefficient of Variation 14.5 % (11.5-14.5); Red Blood Count 5.02 M/uL (4.7-6.1); White Blood Count 6.92 K/uL (4.8-10.8)
[2018-05-04 07:41] LABS: BUN Creatinine Ratio 29.1 (10-20); Calcium 8.3 mg/dl (8.5-10.1); Creatinine Clr Calc Pharmacy 47.7 ml/min; Est GFR (African American) 51.7; Est GFR (Non-African American) 44.6; Magnesium 2.2 mg/dl (1.8-2.4); Potassium 4.1 mmol/L (3.5-5.1)
[2018-05-04] MEDS: FLUTICASONE/SALMETEROL 250/50 (ADVAIR) 14 PUFF/1 INHALER INH SCH (07:52)
[2018-05-04] MEDS: HEPARIN SOD 5,000 UNIT/0.5 ML VIAL SQ SCH (07:53)
[2018-05-04] MEDS: INSULIN ASPART 100 UNITS/ML 3 ML PEN SC SCH ×2 (07:54→12:19)
[2018-05-04] MEDS: TIOTROPIUM BROMIDE 5 PUFF/90 MCG INH INH SCH (07:54)
[2018-05-04] MEDS: METOPROLOL TARTRATE 25 MG TAB PO SCH (07:56)
[2018-05-04] MEDS: MULTIVITAMIN TAB PO SCH (07:56)
[2018-05-04] MEDS: glipiZIDE 5 MG TAB PO SCH (07:57)
--- NOTE | 2018-05-04 10:50 | Cardiology Progress Note ---
Date of Service May 04, 2018 Assessment & Plan (1) Pleural effusion: Status post thoracentesis with 1800 cc drained. Patient improved clinically. Discontinue IV diuretic therapy today. Will plan to initiate Lasix 40 mg daily in a.m. pending review of basic metabolic panel. (2) Acute diastolic (congestive) heart failure: Clinically improving. IV diuretic therapy discontinued 05/03. Will initiate oral Lasix 40 mg daily at discharge. Sodium restriction advised. Repeat x-ray in outpatient setting as scheduled by thoracic surgery. (3) Acute kidney injury superimposed on CKD: Secondary to IV diuretic therapy. Creatinine improving today. Transition to oral diuretics in the outpatient setting. Repeat basic metabolic panel 1 week post discharge. (4) NSVT (nonsustained ventricular tachycardia): No recurrent ventricular tachycardia since admission. PVCs less frequent. Continue low-dose beta-rebecca therapy. Preserved LV systolic function noted on echocardiogram. Outpatient ischemic evaluation when volume status optimized and no evidence of recurrent pleural effusion. (5) COPD (chronic obstructive pulmonary disease): Continue oxygen supplementation. Pulmonary medicine input appreciated. Subjective Patient seen and examined at the bedside. Feeling well from a cardiovascular perspective. Edema significantly improved. Requesting discharge if possible. PVCs are less frequent on telemetry. No lightheadedness, dizziness, syncope, or near syncope. Offers no complaints at this time. Review of Systems All systems reviewed & are unremarkable except as noted in HPI & below Physical Exam Vital Signs (Past 24 Hours): Last Vital Signs Temp 36.6 C 05/04/18 06:59 Pulse 72 05/04/18 09:50 Resp 14 05/04/18 09:50 BP 109/50 L 05/04/18 06:59 Pulse Ox 86 L 05/04/18 09:50 Physical Exam: General: NAD, AAO x3, overweight, chronically ill. HEENT: Normocephalic. Atraumatic. Conjunctiva pink, no scleral icterus. Neck: No carotid bruits, the carotid upstrokes are brisk. No JVD. No HJR Heart: regular rhythm with occasional ectopy, distant heart sounds, normal S-1 and S-2 no S-3 or S-4 gallop. No murmurs or rub appreciated. PMI is not displaced. No RV heave. Lungs: Diminished breath sounds at the left lower lung field. No rales , rhonchi, or wheeze. Abdomen: Normal bowel sounds. Soft. Nontender. No masses or organomegaly. No abdominal bruits. Extremities: 1+ bilateral lower extremity pretibial edema. Pulses: radial=2/4, posterior tibial=2/4. Neuro: Cranial nerves grossly intact. No focal motor deficit.
--- NOTE | 2018-05-04 12:53 | Hospitalist Progress Note ---
Date of Service May 04, 2018 Assessment & Plan (1) Cor pulmonale, acute: H/O COPD--presents with increasing leg swelling, pleural effusion and worsening shortness of breath CXR: Cardiomegaly with pulmonary vascular congestion. Moderate left pleural effusion with bibasilar opacities suggesting atelectasis. Pneumonitis not excluded. Trace right pleural effusion. Continue diuretics ECHO: Left-sided moderate pleural effusion, mild concentric LVH, EF of 60-65%, right ventricle is normal, dilatation of the aortic root to 3.9 cm. Appreciate Cardiology and Pulmnology Input 2 step: Needs 2 liters at rest and 3 liters with activity (2) Pleural effusion: B/L pleural effusion Likely secondary to acute on chronic diastolic heart failure S/P thorocentesis Continue diuretics Supplemental Oxygen as needed Needs FU with CT surgery as outpatient (3) COPD exacerbation: Mild COPD exacerbation Received IV Solu-Medrol Continue Nebs, home inhaler No wheezing on exam currently Appreciate pulmonary input (4) CKD (chronic kidney disease) stage 3, GFR 30-59 ml/min: CHUCK ON CKD III Secondary to diuretics Cr levels better monitor renal functon (5) DM type 2 (diabetes mellitus, type 2): Has been on Januvia and glipizide A1C: 7.2 Continue sliding scale insulin (6) HTN (hypertension): Stable Continue Metoprolol (7) H/O laryngeal cancer: No acute issues Also has H/O prostate cancer DVT px: Heparin SQ CODE STATUS DNR Subjective Patient is seen and examined at bedside Offers no complaints Eager to get discharged Denies chest pain, SOB, dizziness Has 2 step today renal function is improving Physical Exam Vital Signs (Past 24 Hours): Last Vital Signs Temp 36.4 C L 05/04/18 11:08 Pulse 62 05/04/18 11:08 Resp 18 05/04/18 11:08 BP 123/68 05/04/18 11:08 Pulse Ox 93 05/04/18 11:08 Physical Exam: Physical Exam: Vitals signs as noted above General Appearance:Moderately built and nourished, no apparent distress Head: normocephalic, Atraumatic Eyes: normal inspection, EOMI Neck: supple, Trachea midline Respiratory/Chest: Decreased breath sounds, CTA Cardiovascular: S1, S2, No murmur Abdomen/GI:Soft, Non tender, Bowel sounds present Extremities/Musculoskelatal:normal inspection, + pedal edema Neurologic/Psych:AAOX3, grossly no focal neurological deficits Skin: normal color, warm Results & Data Laboratory Results Short CBC 05/04/18 Range/Units 06:49 WBC 6.92 (4.8-10.8) K/uL Hgb 15.1 (14.0-18.0) g/dL Hct 47.9 (42-52) % Plt Count 141 (130-400) K/uL BMP 05/04/18 06:49 Sodium 140 Potassium 4.1 Chloride 98 Carbon Dioxide 37 H BUN 42 H Creatinine 1.44 H Glucose 78 Calcium 8.3 L
--- NOTE | 2018-05-04 13:04 | Discharge Summary ---
Date of Service May 04, 2018 Admission HPI Per Admitting Provider He is an 82-year-old male significant past medical history of COPD on home oxygen, type 2 diabetes, chronic kidney disease, hypertension, hyperlipidemia, and history of prostate cancer has been complaining of increasing shortness of breath for the last 3 weeks. He also complains to have bilateral leg swelling with has been worse for the last 2 or 1 week. He denies history of any fever and/or chills. He does not have any cough or phlegm. Denies any chest pain and/or palpitation. He denies any abdominal pain, nausea and/or vomiting. He does not have any problem with urine and bowel habit and denies any neurological symptoms. He has not been to his primary care physician for the last 3-4 weeks with these symptoms. He has noted to be hypoxic but that improved with 4 L of nasal cannula in the ER. He has noted to have bilateral pleural effusion on x-ray more on the left than the right with 2+ pedal edema on both sides. He did not have any pneumonia and surprisingly his BNP was not elevated. EKG did show sinus rhythm with frequent ectopics and right bundle branch block. He has had an echo done in 2016 with a normal EF and grade 1 diastolic dysfunction. He was admitted to telemetry unit for continuation of care for possible diagnosis of cor pulmonale. Admission Exam Per Admitting Provider Physical Exam: Minimal shortness of breath at rest in bed Constitutional: WD/WN, vitals as above Eyes: PERRL, conjunctivae normal, anicteric sclerae ENMT: external ear and nose normal, oropharynx normal Neck: trachea midline, no thyromegaly Respiratory: + respiratory distress (Minimal respiratory distress at rest) Auscultation: + diminished lung sounds (Decreased breath sounds left base and lower lung more than the right side) and + wheezes (Minimal to no wheezing) Cardiovascular: Rate/Rhythm: + abnormal rate and + abnormal rhythm Heart Sounds: normal S1, normal S2 and + murmur (2/6 ejection systolic murmur over precordium) Extremities: + edema (Bilateral leg edema 2+) Gastrointestinal (Abdomen): Inspection/Auscultation: abdomen normal to inspection, + abdomen distended and normal bowel sounds Percussion/Palpation: abdomen soft; abdomen nontender Musculoskeletal: Ankle: + skin erythema (Lower legs) Bilateral leg edema 2+ Neurologic: Alert, awake and oriented x3. Generally Principal Diagnosis Discharge Information Discharge Diagnosis Acute diastolic heart failure Pleural effusion S/P Thorocentesis CHUCK on CKD NSVT Discharge Goals Decrease discomfort,Improve disease control, Improve function Discharge Activity Limitations Resume your previous activity Discharge Data Allergies Allergy/AdvReac Type Severity Reaction Status Date / Time No Known Allergies Allergy . Verified 05/01/18 06:27 Consultations 05/01/18 07:44 ED Decision to Admit Stat 05/01/18 08:39 Consult Cardiology Routine 05/01/18 11:04 Consult Pulmonology Routine 05/01/18 13:09 Consult Thoracic Surgery Routine Procedures Performed CXR: 1. Cardiomegaly with pulmonary vascular congestion. 2. Moderate left pleural effusion with bibasilar opacities suggesting atelectasis. Pneumonitis not excluded. 3. Trace right pleural effusion. Chest USD; Left pleural effusion. This was marked for possible subsequent thoracentesis Ordered Studies 05/01/18 09:09 US effusion-chest/mediastinum Routine Hospital Course (1) Cor pulmonale, acute: H/O COPD--presents with increasing leg swelling, pleural effusion and worsening shortness of breath CXR: Cardiomegaly with pulmonary vascular congestion. Moderate left pleural effusion with bibasilar opacities suggesting atelectasis. Pneumonitis not excluded. Trace right pleural effusion. Continue diuretics ECHO: Left-sided moderate pleural effusion, mild concentric LVH, EF of 60-65%, right ventricle is normal, dilatation of the aortic root to 3.9 cm. Appreciate Cardiology and Pulmnology Input 2 step: Needs 2 liters at rest and 3 liters with activity (2) Pleural effusion: B/L pleural effusion Likely secondary to acute on chronic diastolic heart failure S/P thorocentesis Continue diuretics Supplemental Oxygen as needed Needs FU with CT surgery as outpatient (3) COPD exacerbation: Mild COPD exacerbation Received IV Solu-Medrol Continue Nebs, home inhaler No wheezing on exam currently Appreciate pulmonary input (4) CKD (chronic kidney disease) stage 3, GFR 30-59 ml/min: CHUCK ON CKD III Secondary to diuretics Cr levels better monitor renal functon (5) DM type 2 (diabetes mellitus, type 2): Has been on Januvia and glipizide A1C: 7.2 Continue sliding scale insulin (6) HTN (hypertension): Stable Continue Metoprolol (7) H/O laryngeal cancer: No acute issues Also has H/O prostate cancer DVT px: Heparin SQ CODE STATUS DNR Total Time Total Time Spent Total Time Spent (In Minutes): 40 minutes Total Time Includes: Examination of the Patient, Discharge Planning, Medication Reconciliation, Communication With Other Providers and Other Discharge Plan Discharge Items Patient Disposition: Home - Self-Care Reason For Visit: INCREASING SOB Discharge Diagnosis: Acute diastolic heart failure Pleural effusion S/P Thorocentesis CHUCK on CKD NSVT Condition: Good Discharge Goals: Decrease discomfort, Improve disease control and Improve function Activity: Resume your previous activity Exercise/Sports: Gradually increase as tolerated Non-emergency contact: Primary Care Provider, Surgeon and [employer] Call non-emergency contact if: you have any medication questions, your symptoms worsen, your pain is not controlled, your pain is worsening, your pain is unusual for you, your pain is concerning for you and you have a fever Diet: Carb Consistent or DM2 and Heart Healthy Addtl Provider Instructions: Follow up with on 05/08/18 at 12:45 pm for Primary Care Follow up with your [employer] on 05/17/18 @10:45 AM Follow up with CT surgery in 1-2 weeks Get Blood test (basic metabolic panel ) and Chest X ray in 1 week and follow up with your Physician with results Use Oxygen 2 liters at rest and 3 liters with activity via nasal cannula as advised Seek immediate medical attention if your symptoms reoccur or worsen Call your Primary Care doctor if any of the following symptoms or problems start or get worse: * Shortness of breath or difficulty breathing * Wake up at night short of breath * Chest pain * Cough * Swelling of your hands, feet, or legs * More fatigued or tired with your normal activity * Palpitations - sudden fast heart beats WEIGHT * Weigh yourself every morning after using the bathroom. * Use the same scale. * Wear the same amount of clothing. * Write your weight down on a chart. * Call your Primary Care doctor if you gain more than 2-3 pounds in 1-2 days. MEDICATIONS * Use this discharge instruction sheet for medication instructions. * Take your medications at the time your doctor ordered. * Do not skip a dose of your medicines. * If you miss a dose of medicine, take it as soon as possible, but DO NOT DOUBLE A DOSE. * Read your medicine information when you get home. * Know all of the side effects of your medicine. If in doubt, ask your pharmacist * Call your Primary Care doctor's office if you have any side effects. * Be sure all of your doctors know what medicine and herbs you take (including cold, flu, and herbal medicine). Take the following with you to your follow-up doctor appointments: * Weight Chart * Medication List * List of questions Do not drink excessive alcohol, beer or wine. Prescriptions: New furosemide 40 mg Tablet 40 mg PO QAM 30 Days Qty: 30 RF: 1 metoprolol tartrate 25 mg Tablet 12.5 mg PO BID 30 Days Qty: 30 RF: 1 Continued multivitamin Tablet 1 tab PO QAM RF: 0 atorvastatin 40 mg Tablet 40 mg PO QAM RF: 0 fluticasone-salmeterol [Advair Diskus] 250-50 mcg/dose Blister With Device 1 inh INHALATION BID RF: 0 glipizide 10 mg Tablet Extended Release 24hr 10 mg PO BID RF: 0 tiotropium bromide [Spiriva with HandiHaler] 18 mcg Capsule, W/Inhalation Device 1 cap INHALATION QAM RF: 0 sitagliptin [Januvia] 100 mg Tablet 100 mg PO QAM RF: 0 Discontinued hydrochlorothiazide 25 mg Tablet 25 mg PO QAM RF: 0 Stand-Alone Forms: [facility]/Other Patient Handouts: Furosemide Oral tablet, Diet High Potassium Dc Discharge Orders: Discharge Order (Routine); Ordered 05/04/18 Ordered By: Axel Rolon Admission Data Admit Date/Time: 05/01/18 08:39 Attending Provider: Axel Rolon Admit Provider: Janeen Menezes Primary Care Provider: Dario Etienne Other Providers: Janeen Menezes ; Isidoro Ball ; Ariel Fontaine ; Arnaldo Garnica ; Davis Cazares ; Mo Davis ; Omer Guadarrama ; Sabine Mitchell ; Riya Liu ; Anupam Johnston ; Anupam Fox Service: Telemetry Other Interventions: Discharge Summary Assessment (RN) Last Done: 05/04/18 13:16 Pending Studies at Discharge: No DC Date/Time DO NOT enter until pt leaves facility: 05/04/18 15:44
--- NOTE | 2018-05-04 13:14 | Surgery Progress Note ---
Date of Service May 04, 2018 Assessment & Plan (1) Pleural effusion: -pt. is s/p left thoracentesis -cultures are (-) -path is (-) for malignancy -will see back in office in 1-2 weeks with repeat CXR -if fluid recurs will consider VATS with pleurectomy Subjective Pt. not SOB and notes he feels good. Physical Exam Vital Signs (Past 24 Hours): Last Vital Signs Temp 36.4 C L 05/04/18 11:08 Pulse 62 05/04/18 11:08 Resp 18 05/04/18 11:08 BP 123/68 05/04/18 11:08 Pulse Ox 93 05/04/18 11:08 Respiratory: normal respiratory effort; no respiratory distress and no labored breathing only slight decrease of BS on left base
[2018-05-05] MEDS ORDERED: FUROSEMIDE 40 MG TAB PO SCH (09:00)
== END 2018-05-04 15:44 | disposition home or self-care (01) | DRG 291 ==
LOC: ED 05:49 → SUATTDRO 08:39 → 2S 08:39